=== PATIENT | male | born 1945 | race Caucasian/White ===

== ENCOUNTER → 2017-10-28 14:15 | Outpatient (CLI) | payer MEDICARE, BC, SELFPAY ==
--- NOTE | 2017-10-28 14:39 | XR_ITS ---
XR knee LT 3V HISTORY: ITS.REASON: LT KNEE PAIN/SWELLING ORDERING PHYSICIAN: Willian Carpenter PATIENT AGE: 72 years COMPARISON: None FINDINGS: There are mild osteoarthritic changes involving all 3 compartments slightly greater at the medial compartment with osteophyte formation and decrease in the joint space. No fracture or dislocation. No lytic or blastic change. There is increased density in the suprapatellar region consistent with knee joint effusion. Accessory center of ossification is present at the tibial tuberosity. IMPRESSION: Mild osteoarthritis with knee joint effusion
== END ==
PROVIDERS: PCP Internal Medicine; Visit Provider Internal Medicine
DX: M25.562 Pain in left knee (principal); M25.462 Effusion, left knee
CPT/HCPCS: 73562

== ENCOUNTER → 2018-06-27 09:22 | Outpatient (CLI) | payer MEDICARE, BC, SELFPAY ==
--- NOTE | 2018-06-27 09:30 | CT_ITS ---
CT abdomen pelvis wo con INDICATION: Hematuria. Pain. HISTORY of STONEs) previous ultrasound showed a right renal calculus. ORDERING PHYSICIAN: Remy Boucher PATIENT AGE: 73 years COMPARISON: None available at this facility . TECHNIQUE: No oral nor IV contrast utilized Axial images obtained with sagittal and coronal reformats. All CT scans at the facility use one or more dose reduction, viz: automated exposure control, ma/kV adjustment per patient size (including targeted exams where dose is matched to indication, i.e. head), or iterative reconstruction technique. FINDINGS: Lung bases. Emphysematous changes. There soft tissue lung nodule medial left lung base/posterior sulcus. This measures 17 mm diameter X 23 mm height at the medial aspect of the posterior sulcus. This soft tissue nodules nonspecific & will require further evaluation/follow-up or comparison to old studies. Along anterior margin of the soft tissue nodule is benign 6 mm calcified granuloma.. . Heart. Fairly extensive Coronary artery calcification, noted.. Heart upper normal size no pericardial effusion Abdomen/Pelvis.... Lack of oral and IV contrast decreases sensitivity. Liver. No focal lesions evident on this noncontrast study.. Would incidental note that the hepatic flexure the colon extends anterior to liver. Nonspecific but can be associated with abdominal symptoms at times. Spleen appears normal in size. Unremarkable. Pancreas Noncontrast images as pancreas appears satisfactory. No pancreatic duct dilatation. No pancreatic mass evident. Adrenals unremarkable. Gallbladder. No calcified gallstones. Cannot exclude and suspect minimal sludge no biliary ductal dilatation. Aorta. Diffuse Mild aneurysmal dilatation infrarenal lower abdominal aorta. Aorta measures up to 3.1 cm x 3 cm just above the bifurcation. Mild dilatation of left common iliac artery up to 1.6 cm and right common iliac artery 1.4 cm. TRACT. Kidneys appear normal in size bilaterally.. Trace Minor stranding about the left kidney more so than right, likely chronic in nature. The ureters appear normal caliber with no obstruction.. I believe but there are numerous parapelvic cyst, (rather than hydronephrosis) at kidneys bilaterally. Numerous parapelvic cyst seen at left kidney more so than right, Most likely accounting for the appearance central portion of kidneys.. Left kidney.. One of the more prominent parapelvic cyst seen inferior to the left renal pelvis left renal pelvis measuring 2.1 cm x 1.5 CM.. Numerous others are similar to slightly smaller measuring less than 2 cm elsewhere throughout central left kidney. At Right Kidney likely a parapelvic cyst superiorly to the right renal pelvis measuring up to 18 mm size coronal image 43. No Renal calculi either kidney.. I doubt hydronephrosis here & and favor peripelvic cyst. PELVIS basin Urinary bladder wall is thickened.likely reflecting hypertrophy .. Two large ovoid bladder calculi,, both Smooth margins The largest more anteriorly measures up to 4 cm transverse 3 cm height 2.5 cm AP. . The more posterior bladder stone measuring 3.3 cm transverse x 15 mm AP x 2.4 cm height Prostate is enlarged. It measures 6.1 cm transverse 5.8 cm AP over 7.6 cm height. It indents and elevates the base the bladder. . Seminal vesicles appear normal size. No significant pelvic adenopathy. Upper normal nodes along the left pelvic sidewall. No mesenteric or retroperitoneal adenopathy. Also note patient is developing bilateral fat-containing inguinal hernias with the right larger than left. This larger right inguinal hernia contains bladder air draping into this area as is nicely seen on sagittal image 48, axial 110 coronal image 33. Additional fat is seen along the inguinal canals bilaterally r
== END ==
PROVIDERS: PCP Internal Medicine; Visit Provider Urology
DX: N20.0 Calculus of kidney (principal)
CPT/HCPCS: 74176

== ENCOUNTER → 2021-02-22 13:09 | Outpatient (CLI) | payer MEDICARE, BC, SELFPAY | PROVIDERS: PCP Internal Medicine; Visit Provider Nurse Practitioner | DX: Z20.822 Contact with and (suspected) exposure to COVID-19 (principal) | CPT/HCPCS: C9803; U0003; U0005 ==

== ENCOUNTER → 2022-08-13 14:21 | Outpatient (CLI) | payer MEDICARE, BC, SELFPAY ==
--- NOTE | 2022-08-13 14:31 | ECG_ITS ---
APPROVED REPORT Exam: Resting ECG HR:93 bpm ECG Measurements Heart Rate 93 AXES NH 140 P 56 QRSd 110 QRS 24 QT 371 T -29 QTc 421 Conclusion SINUS RHYTHM VOLTAGE CRITERIA FOR LVH [MEETS CRITERIA IN ONE OF: R(aVL), S(V1), R(V5), R(V5/V6)+S(V1)] INFERIOR/LATERAL MYOCARDIAL INFARCTION , OF INDETERMINATE AGE [40+ ms Q WAVE AND/OR ST/T ABNORMALITY IN II/aVF] MARKED ST DEPRESSION, CONSIDER SUBENDOCARDIAL INJURY [0.2+ mV ST DEPRESSION] ACUTE [facility] Electronically signed by : Willian Carpenter MD 08/13/2022 17:20:19
== END ==
PROVIDERS: PCP Internal Medicine; Visit Provider Internal Medicine
DX: R06.09 Other forms of dyspnea (principal); R55 Syncope and collapse
CPT/HCPCS: 93005

== ENCOUNTER 2022-08-13 14:50 | Inpatient (IN) | payer MEDICARE, BC, SELFPAY ==
[2022-08-13] VITALS (14 sets, daily range): BP systolic 124–150; BP diastolic 86–122; PULSE 81–129; RESP 18–26; TEMP 36.6–37; O2SAT 94–100; BMI 30.6
--- NOTE | 2022-08-13 | CA_ITS ---
APPROVED REPORT EXAM: Comprehensive 2D, Doppler, and color-flow Echocardiogram Poultry Helper: Mita Ricketts, RCS, RVS Ht: 6 ft 0 in Wt: 225lbs BSA: 2.24 BP: 129/73 mmHg Indications: STEMI, Abn EKG, Pain between shoulder blades, Elevated troponin of 22. 2D Dimensions Aortic Root 3.36 cm M: 3.1 - 3.7 LA Volume 59.10 mL Left Atrium 2.77 cm M: 3.0 - 4.0 LA Volume Index 26.566636 mL/m2 (M/F) 16-34 LVOT 2.00 cm (M/F) 1.5-2.5 M-Mode Dimensions RVDd 2.84 cm (0.9-2.6) LA Diam 3.55 cm (1.9-4.0) LVDd 5.68 cm (3.5-5.7) Ao Diam 3.29 cm (2.0-3.7) LVDs 5.13 cm (3.5-5.7) IVSd 1.19 cm (0.6-1.1) PWd 1.14 cm (0.6-1.1) EF (Teich) 21.00% FS 9.70% EDV (Teich) 158.80 mL TAPSE 0.89 (<1.7) ESV (Teich) 125.50 mL LV Diastology E Decel Time 140.00 (160-240 msec) E/A Ratio 0.74 MED E' 2.40 (< 7 cm/sec) MED A' 9.00 cm/s E'/MED E' Ratio 21.21 (>14) LAT E' 3.40 (<10 cm/sec) LAT A' 7.30 cm/s E/LAT E' Ratio 14.97 (>14) Aortic Valve LVOT Max 71.00 (70-110 cm/s) LVOT VTI 10.57 cm AoV Peak Tay. 93.00 (50-130 cm/s) AO Peak GR. 3.40 mmHg AO Mean GR. 2.10 (<5 mmHg) AO VTI 14.36 (18-25 cm) ÓSCAR (VTI) 2.31 (2.5-4.5 cm2) Mitral Valve MV A Velocity 69.00 (40-130 cm/s) E/A Ratio 0.74 MV Decel. Time 140.00 (160-240 ms) MV PHT 63.00 ms Pulmonary Valve PV Peak Velocity 45.00 (50-150 cm/s) TN End VMAX 219.00 cm/s Tricuspid Valve TR P. Velocity 247.00 cm/s RAP Estimate 10.00 mmHg RVSP 34.40 mmHg Left Ventricle Technically difficult study because of the patient factors and poor acoustic windows. Left atrium is mildly enlarged, left ventricle mildly dilated, there is severe reduced left ventricular systolic function, estimated ejection fraction 20%, there is marked hypokinesis involving mid to distal septum, anterior, anterior apical, anterolateral and inferior wall. Doppler evidence of low cardiac output state seen, grade 1 diastolic dysfunction is also seen with tissue Doppler evidence of late left atrial pressure. Right Ventricle Right atrium and right ventricular mildly enlarged with normal contractility. Aortic Valve Aortic valve is thickened and calcified without aortic stenosis or aortic insufficiency. Mitral Valve Mitral valve leaflets are minimally thickened, there is mild mitral regurgitation. Tricuspid Valve Tricuspid valve grossly normal, there is mild tricuspid regurgitation tricuspid regurgitation jet velocity is inadequate for calculation of the right ventricular systolic pressure. Pulmonic Valve Pulmonic valve is poorly visualized. Great Vessels Aortic root is normal size. Inferior vena cava is poorly visualized. Pericardium No significant pericardial effusion noted. Conclusion 1. Technically difficult study because of the patient factors and poor acoustic windows. Biatrial enlargement, dilated left ventricle, severe reduced left ventricular systolic function, estimated ejection fraction 20% with multiple segmental wall motion abnormalities as described above, Doppler evidence of low cardiac output state, grade 1 diastolic dysfunction seen with tissue Doppler evidence of reduced left atrial pressure. 2. Mildly enlarged right ventricle with normal contractility. 3. Mild mitral and tricuspid regurgitation. 4. No significant pericardial effusion. 5. Inferior vena cava is poorly visualized. Electronically signed by : Rafi Siddiqi MD 08/14/2022 07:01:41
--- NOTE | 2022-08-13 14:44 | ECG_ITS ---
APPROVED REPORT Exam: Resting ECG HR:102 bpm ECG Measurements Heart Rate 102 AXES NC 154 P 43 QRSd 106 QRS -5 QT 353 T -16 QTc 411 Conclusion SINUS TACHYCARDIA LEFT VENTRICULAR HYPERTROPHY AND ST-T CHANGE [VOLTAGE CRITERIA PLUS ST/T ABNORMALITY] INFERIOR MYOCARDIAL INFARCTION , OF INDETERMINATE AGE [40+ ms Q WAVE AND/OR ST/T ABNORMALITY IN II/aVF] PROBABLE ANTEROLATERAL MYOCARDIAL INFARCTION , OF INDETERMINATE AGE [35 ms Q WAVE IN I/aVL/V3-V6] ABNORMAL ECG INTERPRETATION BASED ON A DEFAULT AGE OF 40 YEARS UNCONFIRMED REPORT Electronically signed by : Mateo Epstein MD 08/14/2022 03:00:08
--- NOTE | 2022-08-13 14:56 | XR_ITS ---
FINAL REPORT CLINICAL HISTORY: soa FINDINGS: A single PA view of the chest was obtained. There is no prior exam for comparison. The cardiac and mediastinal silhouettes are within normal limits. Right paratracheal opacity likely represents vascular structures. Lung volumes are low. The lungs are otherwise clear. There is no effusion or pneumothorax. No acute osseous abnormality is identified. IMPRESSION: Low lung volumes. No acute infiltrate. Recommend upright PA and lateral chest x-ray. Reviewed, Interpreted and Dictated by Roopa Pitts MD Transcribed by Mario Ramos Authenticated and [facility]
[2022-08-13 15:07] LABS: Basophils # 0.1 K/mm3 (0-0.2); Basophils % 0.3 % (0.1-2.0); Eosinophils # 0.2 K/mm3 (0.0-0.4); Eosinophils % 1.3 % (0.1-12.0); Hemoglobin 13.8 g/dL (14.1-18.0); Lymphocytes # 1.5 K/mm3 (0.7-4.5); Lymphocytes % 8.9 % (10-50); Mean Corpuscular HGB Conc 32.2 g/dL (31.8-35.4); Mean Corpuscular Hemoglobin 29.8 pg (27.0-31.2); Mean Corpuscular Volume 92.6 fl (80-94); Mean Platelet Volume 9.1 fl (7.4-10.4); Monocytes % 5.9 % (1.7-9.3); Neutrophils # 14.4 K/mm3 (1.8-7.8); Neutrophils % 83.7 % (37.0-80.0); Platelet Count 400 K/mm3 (142-424); Red Blood Count 4.64 M/mm3 (4.60-6.20); Red Cell Distribution Width 14.7 % (11.5-17.5); White Blood Count 17.3 K/mm3 (4.8-10.8)
--- NOTE | 2022-08-13 15:16 | HMH.EDGENADL ---
Discharge Plan Disposition Patient Disposition: Admitted As Inpatient Referrals Follow up/Referrals: Provider,Referral, [Referring] - See instructions Clinical Impressions Clinical Impression: ACS (acute coronary syndrome) Discharge ED Provider: Simon Vo General Adult HPI General Chief complaint: Chest Pain Stated complaint: soa Time Seen by Provider: 08/13/22 14:50 Mode of Arrival: Wheelchair Source of Information: Patient and Spouse Limitations: No Limitations Description of Symptoms (Recalled from ER Triage Doc. by RN): Pt from home c/o chest pain onset approx 3 days prior no only mid-back pain; denies PMHx of similiar History of Present Illness HPI narrative: 77-year-old male presents with shortness of air for few days. He was going to have an outpatient dental procedure today and was evaluated by cardiology however when Dr. Jacob evaluated him he noticed that there were EKG changes and sent him to the emergency room. He described it as a subacute STEMI however thinks that the EKG has q'ed out to the point where emergent heart catheterization is not indicated. On my evaluation when he initially arrives in the emergency room he has no chest pain shortness of air and is asymptomatic at this time. He describes upper back pain intermittently between his shoulder blades over the last week however has chronic back pain and was attributing it to this. He otherwise has no other symptoms including fever or hemoptysis abdominal pain nausea vomiting diaphoresis. Related Data Allergies Allergy/AdvReac Type Severity Reaction Status Date / Time nystatin [From Mycostatin] AdvReac Verified 08/13/22 15:10 rofecoxib [From Vioxx] AdvReac Verified 08/13/22 15:08 [facility] Disclaimer: The information contained in this section may have been updated after the patient was seen, as this information can be updated by other users. Social History Smoking Status: Never smoker alcohol intake: former current occupational status: other Travel in the last 8 weeks: Inside the [place] ROS Obtained: Yes All systems reviewed & no additional complaints except as documented Constitutional Constitutional: Denies fatigue Eyes Eyes: Denies dry eyes ENT Ears, Nose, Mouth, and Throat: Denies dizziness Cardiovascular Cardiovascular: Denies diaphoresis and Denies dyspnea Respiratory Respiratory: Denies dyspnea and Denies wheezing Gastrointestinal Gastrointestingal: Denies constipation or heartburn Genitourinary Male Genitourinary: Denies flank pain Musculoskeletal Musculoskeletal: Denies joint stiffness Integumentary/Breasts Skin/Breast: Denies redness Neurologic Neurologic: Denies dizziness Endocrine Endocrine: Denies fatigue Hematologic/Lymphatic Henatologic/Lymphatic: Denies easy bruising Allergic/Immunologic Allergic/Immunologic: Denies wheezing Physical Exam General General appearance: alert and in no apparent distress Eye Eye exam: Present PERRL and EOMI ENT ENT exam: Present normal exam and normal oropharynx Neck Neck exam: Present normal inspection Chest Chest inspection: Present symmetric chest wall rise Respiratory Respiratory exam: Present normal lung sounds bilaterally; Absent respiratory distress Cardiovascular Cardiovascular exam: Present regular rate and normal rhythm Abdominal Exam Abdominal exam: Present soft; Absent distention, tenderness, guarding, rebound, Frances's sign or tenderness at McBurney's Point Rectal Exam Rectal exam: Present deferred Back Exam Back exam: Present normal inspection Neurological Exam Neurological exam: Present alert and oriented X3 Psychiatric Psychiatric exam: Present normal affect and normal mood Skin Skin exam: Present warm, dry and intact Lymphatic Lymphatic Findings: no adenopathy Medical Decision Making Medical Records Medical records reviewed: Yes I reviewed the patient's medical records. Sarthak Inquiry Pt receiving controlled substance: No [place]
[2022-08-13 15:19] LABS: MANUAL DIFFERENTIAL MANUAL DIFFERENTIAL (MANUAL DIFF)
[2022-08-13 15:38] LABS: NT Pro Brain Natriuretic Pep. 19000 pg/mL (0-450)
[2022-08-13 15:47] LABS: Chloride 106 mmol/L (98-107); Potassium 4.4 mmoL/L (3.5-5.1); Sodium 140 mmol/L (136-145)
--- NOTE | 2022-08-13 15:49 | PC.NURSE ---
LUCRECIA SCOTT spoke with dr. davidson at this time
[2022-08-13 15:50] LABS: Alanine Aminotransferase 169 U/L (12-78); Albumin Level 4.5 g/dl (3.5-5.0); Albumin/Globulin Ratio 1.3 (1.1-1.8); Alkaline Phosphatase 121 U/L (38-126); Anion Gap 13.4 mEq/L (5-15); Aspartate Amino Transferase 161 U/L (17-59); Blood Urea Nitrogen 50 mg/dl (9-20); Calcium 8.9 mg/dl (8.4-10.2); Carbon Dioxide 25 mmol/L (22.0-30.0); Creatinine Clearance Estimated 27 mL/min (50-200); Estimated Glomerular Filt Rate 19 ml/min (>60); GFR (African American) 23 ML/MIN (>60); Globulin 3.4 g/dL (1.3-3.2); Glucose 173 mg/dl (74-100); Total Protein,Serum 7.9 g/dl (6.3-8.2)
--- NOTE | 2022-08-13 15:50 | PC.NURSE ---
waiting cable television technician back from dr. lorenzana
--- NOTE | 2022-08-13 15:54 | HMH.PHAHEP ---
[facility] Pharmacy Heparin Dosing Demographic Data Admission date:: 08/13/22 Date: 08/13/22 Time: 15:54 Allergies Allergy/AdvReac Type Severity Reaction Status Date / Time nystatin [From Mycostatin] AdvReac Verified 08/13/22 15:10 rofecoxib [From Vioxx] AdvReac Verified 08/13/22 15:08 Height: 1.83 m Weight: 102.512 kg Indication Medication therapy:: Heparin Current Indications:: ACS (LOW DOSE PROTOCOL) Current Active Problems (Updated 08/14/22 @ 10:05 by Chaya Cardoza APRN) Elevated liver enzymes (Acute) RAQUEL (acute kidney injury) (Acute) Atrial fibrillation with RVR (Acute) Acute systolic CHF (congestive heart failure) (Acute) NSTEMI (non-ST elevated myocardial infarction) (Acute) ACS (acute coronary syndrome) (Acute) CVA?: No Bleeding problem?: No Kidney disease?: No MS?: Yes Desired PTT range:: 50-75 seconds Labs Anticoagulation Lab Results:: 08/13/22 15:00 Hgb 13.8 L Hct 43.0 Plt Count 400 Monitoring Dose Monitor 1: Date: 08/13/22 Time: 15:46 PTT Result:: 25.5 seconds Infusion Rate:: START HEPARIN DRIP AT 1000 UNITS/HOUR = 20 ML/HOUR AND BOLUS HEPARIN 4000 UNITS IV ONCE. Dose Monitor 2: Date: 08/13/22 Time: 20:00 PTT Result:: 42.8 seconds Infusion Rate:: INCREASE HEPARIN DRIP RATE TO 1200 UNITS/HOUR = 24 ML/HOUR AND BOLUS HEPARIN 3000 UNITS IV ONCE. Dose Monitor 3: Date: 08/14/22 Time: 03:00 PTT Result:: 51.2 SECONDS Infusion Rate:: CONTINUE CURRENT DRIP RATE OF 1200 UNITS/HOUR = 24 ML/HOUR. Dose Monitor 4: Date: 08/14/22 Time: 09:00 PTT Result:: 43.6 SECONDS Infusion Rate:: INCREASE HEPARIN DRIP RATE TO 1400 UNITS/HOUR = 28 ML/HOUR AND BOLUS 3000 UNITS HEPARIN IV ONCE. Dose Monitor 5: Date: 08/14/22 Time: 15:00 PTT Result:: 57.8 SECONDS Infusion Rate:: CONTINUE CURRENT HEPARIN DRIP RATE OF 1400 UNITS/HOUR = 28 ML/HOUR Dose Monitor 6: Date: 08/14/22 Time: 21:00 PTT Result:: 52.8 SECONDS Infusion Rate:: CONTINUE CURRENT HEPARIN DRIP RATE OF 1400 UNITS/HOURS = 28 ML/HOUR Dose Monitor 7: Date: 08/15/22 Time: 06:00 PTT Result:: 54.4 SECONDS Infusion Rate:: CONTINUE CURRENT HEPARIN DRIP RATE OF 1400 UNITS/HOUR = 28 ML/HOUR Core Measures Is INR > or = 2 at discharge?: No Most Recent Labs:: Laboratory Results - last 24 hr 08/13/22 15:00: WBC 17.3 H, RBC 4.64, Hgb 13.8 L, Hct 43.0, MCV 92.6, MCH 29.8, MCHC 32.2, RDW 14.7, Plt Count 400, MPV 9.1, Neut % (Auto) 83.7 H, Lymph % (Auto) 8.9 L, [place] % (Auto) 5.9, Eos % (Auto) 1.3, Baso % (Auto) 0.3, Neut # (Auto) 14.4 H, Lymph # (Auto) 1.5, [place] # (Auto) 1.0, Eos # (Auto) 0.2, Baso # (Auto) 0.1 08/13/22 15:00: D-Dimer 1.40 H 08/13/22 15:00: Troponin I 22.70 H, NT-Pro-B Natriuret Pep 44934 H 08/13/22 15:00: Sodium 140, Potassium 4.4, Chloride 106, Carbon Dioxide 25, Anion Gap 13.4, BUN 50 H, Creatinine 3.20 H, Estimated Creat Clear 27, Estimated GFR 19 L*, Est GFR ( Amer) 23 L, Glucose 173 H, Calcium 8.9, Total Bilirubin 1.0, AST 161 H, ALT 169 H, Alkaline Phosphatase 121, Total Protein 7.9, Albumin 4.5, Globulin 3.4 H, Albumin/Globulin Ratio 1.3 If INR was < than 2.0 why was therapy stopped?: CHANGED TO XARELTO Were Heparin and Warfarin started on the same day?: No If not, why?: CHANGED TO XARELTO
--- NOTE | 2022-08-13 15:56 | PC.NURSE ---
per cv lab staff to ER states preliminary EF is 20%
--- NOTE | 2022-08-13 16:12 | PC.NURSE ---
called care management for admission awaiting bed assignment
[2022-08-13 16:16] LABS: Coronavirus 19, PCR Not Detected (NotDetected); Influenza A, PCR Not Detected (NotDetected); Influenza B, PCR Not Detected (NotDetected)
[2022-08-13 16:26] LABS: Lymphocytes % 4 % (10-50); Monocytes % 4 % (2-9); Neutrophils % 92 % (42-76); Platelet Estimate Normal; RBC Morphology Normal; Total Cells Counted 100
--- NOTE | 2022-08-13 16:52 | PC.NURSE ---
data entry technician Tasia called to report PTT heparin lab at 25.5, result communicated to physician Tavo
[2022-08-13 16:53] LABS: PTT Heparin (inpatient only) 25.5 Seconds (23.6-34.0)
--- NOTE | 2022-08-13 16:57 | PC.NURSE ---
Voicemail left w on-call pharmacist for dosing reccs after PTT level established prior to heparin administration
--- NOTE | 2022-08-13 17:00 | PC.NURSE ---
per limehouse worker pt will be boarding in ER at this time. waiting on discharges updated pt and family
--- NOTE | 2022-08-13 17:15 | PC.NURSE ---
supper tray ordered for pt
--- NOTE | 2022-08-13 17:24 | PC.NURSE ---
Spoke conrado Madera, the long call pharmacist, after no return from inpt service, and clarified heparin dosing protocol with expected PTT level checked as ordered at 20:00 today.
--- NOTE | 2022-08-13 17:50 | PC.NURSE ---
pt was eating no complaints at this time, family at bedside
--- NOTE | 2022-08-13 17:59 | PC.NURSE ---
dr. lorenzana at BS
--- NOTE | 2022-08-13 18:04 | PC.NURSE ---
three hour troponin drawn and sent to lab
--- NOTE | 2022-08-13 18:26 | EXP.HP ---
History of Present Illness *Admission Date: 08/13/22 *Reason for visit:: Weakness, dyspnea with exertion, back pain *History of present illness: Mr. Rose is a pleasant 77-year-old male who presented to the ER with shortness of breath worse over the past 48 to 72 hours. His is with him and gives additional history. Patient states that Saturday he felt weak and had a fall into the wall with back pain. Fell because he felt fatigued and more dyspneic with exertion. Denies any jermaine chest pain, diaphoresis, jermaine syncope. No previous history of cardiac problems per his report. He was being evaluated as an outpatient by his PCP prior to having a dental procedure. EKG obtained showing concern for Q waves and subacute STEMI. This led to his immediate presentation to the ER at the recommendation of cardiology. On evaluation in the ER, he denied any chest pain but does complain of some dyspnea. Medicine consulted for admission. Patient mildly dyspneic on my interview. Respiratory rate 22-24. Blood pressures acceptable with systolics 130s to 140s. Denies jermaine chest pain. Does have significant edema in his lower extremities. at bedside helps supplement history and review of systems. Patient is alert and oriented x3. [facility] Disclaimer: The information contained in this section may have been updated after the patient was seen, as this information can be updated by other users. Social History Smoking Status: Never smoker alcohol intake: former current occupational status: other Travel in the last 8 weeks: Inside the [place] Review of Systems Review of Systems Review of systems (narrative): 14 point review of systems performed, pertinent positives and negatives as per HPI ENT Ears, Nose, Mouth, and Throat: Denies dizziness *Neurologic Neurologic: Denies dizziness Meds Home Medications and Allergies New Prescriptions to Start Prescriptions: Allergies Allergy/AdvReac Type Severity Reaction Status Date / Time nystatin [From Mycostatin] AdvReac Verified 08/13/22 15:10 rofecoxib [From Vioxx] AdvReac Verified 08/13/22 15:08 Exam Data for Last 24 hours Vital signs and Labs for Last 24 Hours: Temp Pulse Resp BP Pulse Ox 97.8 F 91 H 18 144/100 H 100 08/13/22 15:02 08/13/22 17:30 08/13/22 16:17 08/13/22 17:30 08/13/22 17:30 Laboratory Results - last 24 hr 08/13/22 15:00: WBC 17.3 H, RBC 4.64, Hgb 13.8 L, Hct 43.0, MCV 92.6, MCH 29.8, MCHC 32.2, RDW 14.7, Plt Count 400, MPV 9.1, Neut % (Auto) 83.7 H, Lymph % (Auto) 8.9 L, [place] % (Auto) 5.9, Eos % (Auto) 1.3, Baso % (Auto) 0.3, Neut # (Auto) 14.4 H, Lymph # (Auto) 1.5, [place] # (Auto) 1.0, Eos # (Auto) 0.2, Baso # (Auto) 0.1, Total Counted 100, Neutrophils % (Manual) 92 H, Lymphocytes % (Manual) 4 L, Monocytes % (Manual) 4, Platelet Estimate Normal, RBC Morphology Normal 08/13/22 15:00: D-Dimer 1.40 H 08/13/22 15:00: Troponin I 22.70 H, NT-Pro-B Natriuret Pep [id number] H 08/13/22 15:00: Sodium 140, Potassium 4.4, Chloride 106, Carbon Dioxide 25, Anion Gap 13.4, BUN 50 H, Creatinine 3.20 H, Estimated Creat Clear 27, Estimated GFR 19 L*, Est GFR ( Amer) 23 L, Glucose 173 H, Calcium 8.9, Total Bilirubin 1.0, AST 161 H, ALT 169 H, Alkaline Phosphatase 121, Total Protein 7.9, Albumin 4.5, Globulin 3.4 H, Albumin/Globulin Ratio 1.3 08/13/22 15:00: APTT 25.5 08/13/22 16:14: SARS-CoV-2 (PCR) Not detected, Influenza A Untype (PCR) Not detected, Influenza Type B (PCR) Not detected I & O for Last 24 hours: Intake & Output 08/10/22 08/11/22 08/12/22 08/13/22 23:59 23:59 23:59 23:59 Weight 102.512 kg Constitutional Constitutional: no acute distress *Routine HEENT Exam Head: Present normocephalic and atraumatic Eye: Present EOMI and PERRL ENT: Present mucous membranes moist Comments: poor dentition *Routine Neck Exam Neck: Present supple; Absent JVD Routine Chest/Breast/Axilla Exam
--- NOTE | 2022-08-13 18:42 | PC.NURSE ---
notified ER critical troponin.
--- NOTE | 2022-08-13 18:43 | PC.NURSE ---
Dr. Long notified of repeated troponin level, increased by 2.4 points
--- NOTE | 2022-08-13 19:18 | PC.NURSE ---
Dr. Long notified of change in patient condition with increased work of breathing, tachypnea and subjective dyspnea, recieved order and placed patinet on 2LNC oxygen admin, ordered, ECG, and paged cards cash applications associate
--- NOTE | 2022-08-13 19:21 | ECG_ITS ---
APPROVED REPORT Exam: Resting ECG HR:87 bpm ECG Measurements Heart Rate 87 AXES LA 157 P 82 QRSd 145 QRS 37 QT 383 T -15 QTc 427 Conclusion SINUS RHYTHM INTRAVENTRICULAR CONDUCTION DELAY [130+ ms QRS DURATION] PROBABLE LATERAL MYOCARDIAL INFARCTION , PROBABLY OLD [35 ms Q WAVE IN I/aVL/V5/V6] INFERIOR MYOCARDIAL INFARCTION , OF INDETERMINATE AGE [40+ ms Q WAVE AND/OR ST/T ABNORMALITY IN II/aVF] ABNORMAL ECG UNCONFIRMED REPORT Electronically signed by : Mateo Epstein MD 08/14/2022 02:58:38
--- NOTE | 2022-08-13 19:23 | PC.NURSE ---
Dr. Jacob w Cards returned page and informed of patient assessment and change in respiratory status, orders recieved for lisinopril 10mg PO once now, and furosemide 40mg IV once now, as well as holding any beta-blocking class medications.
--- NOTE | 2022-08-13 19:52 | PC.NURSE ---
Report called to inpt RN for room 218 accepting is Soo (sp?), no further questions after pt condition, eval, plan of care explained. Will come down to transport pt
--- NOTE | 2022-08-13 20:11 | PC.NURSE ---
PT ARRIVED TO FLOOR AT THIS TIME
[2022-08-13 21:10] LABS: PTT Heparin (inpatient only) 42.8 Seconds (23.6-34.0)
--- NOTE | 2022-08-13 21:43 | PC.NURSE ---
Heparin gtt titrated up to 1200u/hr per Pharmacy order.
--- NOTE | 2022-08-13 22:13 | ECG_ITS ---
APPROVED REPORT Exam: Resting ECG HR:123 bpm ECG Measurements Heart Rate 123 AXES QRSd 145 QRS 22 QT 311 T -42 QTc 384 Conclusion ATRIAL FIBRILLATION WITH RAPID VENTRICULAR RESPONSE INTRAVENTRICULAR CONDUCTION DELAY [130+ ms QRS DURATION] PROBABLE LATERAL MYOCARDIAL INFARCTION , PROBABLY OLD [35 ms Q WAVE IN I/aVL/V5/V6] INFERIOR MYOCARDIAL INFARCTION , OF INDETERMINATE AGE [40+ ms Q WAVE AND/OR ST/T ABNORMALITY IN II/aVF] ABNORMAL ECG UNCONFIRMED REPORT Electronically signed by : Mateo Epstein MD 08/14/2022 02:57:22
[2022-08-14] VITALS (23 sets, daily range): BP systolic 102–129; BP diastolic 56–91; PULSE 60–140; RESP 18–24; TEMP 36.5–36.9; O2SAT 96–100; BMI 30.6
--- NOTE | 2022-08-14 00:47 | PC.NURSE ---
Pt c/o SOA. Vitals stable BP-102/68 HR-107 to 122 still Afib on monitor. O2-98% Hospitalist notified at this time and stated she will come see the pt.
--- NOTE | 2022-08-14 00:56 | PC.NURSE ---
Pt c/o feeling very SOA, VS- bp 102/68, HR afib 80-100 afib, RR 24, O2 98% on 2 L nc. Hospitalist notified and is at bedside. NNO at this time.
[2022-08-14 03:27] LABS: PTT Heparin (inpatient only) 51.2 Seconds (23.6-34.0)
--- NOTE | 2022-08-14 05:13 | PC.NURSE ---
[place] with [facility] states to keep Heparin gtt at 1200u/hr. She will put in order for a new PTT to be drawn at 0900.
--- NOTE | 2022-08-14 05:30 | PC.NURSE ---
2206 Notified Raphael kapoor heart rhythm had changed and HR was 100-150s, irregular. Verbal order for an EKG and states she would come to bedside. 2214 EKG performed, pt is Afib RVR, Raphael Kapoor at bedside aware. 0 Raphael kapoor gives verbal order to start Amiodarone drip and bolus per protocol. R/V/and carried out.
--- NOTE | 2022-08-14 05:35 | PC.NURSE ---
Pt noted to convert back to NSR at 0214. J Devonte summers.
--- NOTE | 2022-08-14 05:37 | PC.NURSE ---
Pt has remained NSR since converting around 2am. Pt has not voiced any c/o of SOA since converting and denies having any kind of chest pain t/o shift. Heparin gtt is currently running at 1200u/hr, Amiodarone turned down at 0500, currently running at 0.5mg/min. is at bedside. Call light within reach.
[2022-08-14 06:27] LABS: Lymphocytes # 1.6 K/mm3 (0.7-4.5); Lymphocytes % 9.5 % (10-50); Platelet Count 337 K/mm3 (142-424); Red Blood Count 4.13 M/mm3 (4.60-6.20); White Blood Count 17.2 K/mm3 (4.8-10.8)
[2022-08-14 06:36] LABS: Basophils % 0.2 % (0.1-2.0); Eosinophils % 0.2 % (0.1-12.0); Hematocrit 38.3 % (42.0-52.0); Hemoglobin 12.1 g/dL (14.1-18.0); Mean Corpuscular HGB Conc 31.5 g/dL (31.8-35.4); Mean Corpuscular Hemoglobin 29.3 pg (27.0-31.2); Mean Corpuscular Volume 92.9 fl (80-94); Mean Platelet Volume 9.1 fl (7.4-10.4); Monocytes # 1.2 K/mm3 (0.1-1.0); Neutrophils # 14.3 K/mm3 (1.8-7.8); Red Cell Distribution Width 14.6 % (11.5-17.5)
[2022-08-14 06:38] LABS: MANUAL DIFFERENTIAL MANUAL DIFFERENTIAL (MANUAL DIFF)
[2022-08-14 06:44] LABS: Alanine Aminotransferase 129 U/L (12-78); Albumin Level 3.6 g/dl (3.5-5.0); Albumin/Globulin Ratio 1.2 (1.1-1.8); Alkaline Phosphatase 113 U/L (38-126); Anion Gap 11.1 mEq/L (5-15); Aspartate Amino Transferase 140 U/L (17-59); Bilirubin,Total 0.9 mg/dl (0.2-1.3); Blood Urea Nitrogen 58 mg/dl (9-20); Calcium 8.1 mg/dl (8.4-10.2); Carbon Dioxide 20 mmol/L (22.0-30.0); Chloride 106 mmol/L (98-107); Creatinine Clearance Estimated 29 mL/min (50-200); Estimated Glomerular Filt Rate 20 ml/min (>60); GFR (African American) 25 ML/MIN (>60); Globulin 2.9 g/dL (1.3-3.2); Glucose 159 mg/dl (74-100); Magnesium 2.2 mg/dl (1.6-2.3); Potassium 4.1 mmoL/L (3.5-5.1); Sodium 133 mmol/L (136-145); Total Protein,Serum 6.5 g/dl (6.3-8.2)
[2022-08-14 06:50] LABS: Chol/HDL Ratio 4.3 (1-3.5); Cholesterol 159 mg/dl (140-200); HDL Cholesterol 37 mg/dl (40-60); Triglycerides 132 mg/dl (30-150); VLDL Cholesterol 26 mg/dL (0-40)
[2022-08-14 07:00] LABS: Direct LDL Cholesterol 99.81 mg/dL (100-129)
--- NOTE | 2022-08-14 07:39 | HMH.PHAINT1 ---
Pharmacy Intervention Comments: MEDICATION RECONCILIATION COMPLETED ON PATIENT VIA PATIENT INTERVIEW. ONLY TAKES MECLIZINE DAILY NEEDED. -ANNETTE SNIDER, SVEND
[2022-08-14 07:51] LABS: Lymphocytes % 16 % (10-50); Monocytes % 3 % (2-9); Neutrophils % 81 % (42-76); Platelet Estimate Normal; RBC Morphology Normal; Total Cells Counted 100
--- NOTE | 2022-08-14 08:40 | PC.NURSE ---
Notified Dr Long face to face at 0840 that pt has triggered for severe sepsis risk at this time. no new orders.
--- NOTE | 2022-08-14 09:29 | EXP.CARD.CON ---
History of Present Illness History of Present Illness Consult date: 08/14/22 Requesting physician: Mazin Long Chief complaint: NSTEMI History of present illness: 77-year-old white male who denies significant past medical history presented to emergency department for evaluation of abnormal EKG concerning for Q waves and subacute stemi. Patient reports he felt poorly over the weekend and had experienced sudden onset of soa and generalized weakness. Reports on Saturday he fell into a wall due to generalized weakness and soa. Reports did not have LOC. Had a second episodes yesterday prompting him to go to his pcp for evaluation. PCP sent him to hospital to get an ekg. Initial EKG showed pathologic Q waves in inferior leads and non specific st changes concerning for recent ND. Patient was sent to ER for further evaluation and admission. Patient denies any chest pain but does report back pain between shoulder blades x 1 week which he attributed to chronic back pain. Chest xray was negative for acute illness or process. Labs as follow: WBC 17.3, hemoglobin 13.8, D-dimer 1.4, sodium 140, potassium 4.4, BUN 50, creatinine 3.20 trending down to 3.0, AST 161, ALT 169, troponin 22.7 trending up to 29.8, proBNP greater than 19,000. Cardiology was consulted and patient was started on heparin drip and admitted for further evaluation. After admission to hospital patient developed A-fib RVR with a rate of 120 when getting up to walk to the bathroom. Patient was started on IV amiodarone and converted to normal sinus rhythm. [facility] Disclaimer: The information contained in this section may have been updated after the patient was seen, as this information can be updated by other users. Medical History (Updated 08/14/22 @ 10:05 by Chaya Cardoza APRN) Melanoma of scalp Surgical History (Updated 08/13/22 @ 20:36 by Sadia Shen RN) History of bladder surgery Status post left partial knee replacement Family History (Updated 08/13/22 @ 20:37 by Sadia Shen RN) Other Cancer of pituitary gland Prostate cancer Throat cancer Social History (Updated 08/13/22 @ 20:38 by Sadia Shen RN) Smoking Status: Never smoker alcohol intake: former current occupational status: other Travel in the last 8 weeks: Inside the [place] Review of Systems Review of Systems Review of systems:: pertinent systems reviewed and negative unless documented below Constitutional Constitutional: Reports system reviewed and no additional complaints, except as documented and Reports fatigue ENT Ears, Nose, Mouth, and Throat: Denies dizziness *Cardiovascular Cardiovascular: Reports system reviewed and no additional complaints, except as documented and Reports dyspnea *Respiratory Respiratory: Reports system reviewed and no additional complaints, except as documented and Reports dyspnea *Gastrointestinal Gastrointestinal: Reports system reviewed and no additional complaints, except as documented *Musculoskeletal Musculoskeletal: Reports back pain *Neurologic Neurologic: Denies confusion and Denies dizziness Psychiatric Psychiatric: Reports system reviewed and no additional complaints, except as documented and Denies confusion Endocrine Endocrine: Reports fatigue Exam Data for Last 24 hours Vital signs and Labs for Last 24 Hours: Temp Pulse Resp BP Pulse Ox 98.2 F 76 20 118/72 99 08/14/22 07:47 08/14/22 08:00 08/14/22 08:00 08/14/22 08:00 08/14/22 08:00 Laboratory Results - last 24 hr 08/13/22 15:00: WBC 17.3 H, RBC 4.64, Hgb 13.8 L, Hct 43.0, MCV 92.6, MCH 29.8, MCHC 32.2, RDW 14.7, Plt Count 400, MPV 9.1, Neut % (Auto) 83.7 H, Lymph % (Auto) 8.9 L, [place] % (Auto) 5.9, Eos % (Auto) 1.3, Baso % (Auto) 0.3, Neut # (Auto) 14.4 H, Lymph # (Auto) 1.5, [place] # (Auto) 1.0, Eos # (Auto) 0.2, Baso # (Auto) 0.1, Total Counted 100, Neutrophils % (Manual) 92 H, Lymphocytes % (Manual) 4 L, Monocytes % (Manual) 4, Platelet Estima
[2022-08-14 09:53] LABS: PTT Heparin (inpatient only) 43.6 Seconds (23.6-34.0)
--- NOTE | 2022-08-14 10:35 | PC.NURSE ---
At start of shift Heparin drip infusing at 1200units/hr (24ml/hr) 1030 heparin drip increased to 1400units/hr (28ml/hr) and heparin bolus given per pharmacy orders.
--- NOTE | 2022-08-14 15:22 | DIET.NUTRFU ---
Patient is currently on cardiac diet, did not like his lunch he was requesting hamburger. Nursing okay to have. When interviewed patient indicated he is picky and does not follow cardiac at home. Eats hamburgers often and dislikes Mrs. Magallon. Reviewed and took dinner selection from patient. was reviewing tomorrows menu often visit. RD explained what foods were available on cardiac diet and ordering process.
[2022-08-14 15:31] LABS: PTT Heparin (inpatient only) 57.8 Seconds (23.6-34.0)
--- NOTE | 2022-08-14 17:29 | PC.NURSE ---
per pharmacy drip does not need to be titrated. results are within acceptable range.
--- NOTE | 2022-08-14 19:51 | EXP.ACUTE.PN ---
Subjective *Date: 08/14/22 *Time: 19:56 Interval history: Patient doing well this morning. Has diuresed well overnight, -1 L. Had an episode of A-fib overnight, responded to amiodarone. Elevated white cell count this morning, meets SIRS criteria but does not have a source of infection. Consider further work-up. Electrolytes stable. Denies chest pain, nausea, vomiting, confusion, fevers Medical Exam Vital signs and Labs for Last 24 Hours: Vital Signs Temp Pulse Pulse Pulse Resp BP BP 08/14/22 17:00 65 08/14/22 18:00 67 20 126/72 08/14/22 16:02 66 20 110/56 L 08/14/22 16:00 60 08/14/22 08:02 70 08/14/22 12:00 60 08/14/22 15:33 97.9 F 08/14/22 15:00 65 20 106/68 L 08/14/22 12:50 69 20 112/67 08/14/22 11:18 97.7 F 08/14/22 10:00 69 20 112/70 08/14/22 07:50 71 08/14/22 08:00 76 20 118/72 08/14/22 07:47 98.2 F 08/14/22 04:00 98.2 F 08/13/22 22:00 129 H 26 H 08/14/22 06:00 68 24 08/13/22 20:39 120 H 08/14/22 04:34 70 08/14/22 00:00 140 H 08/14/22 04:00 08/14/22 04:00 69 18 08/14/22 02:00 73 18 08/14/22 00:55 95 H 24 08/14/22 00:00 98.2 F 111 H 18 08/13/22 20:00 08/13/22 20:00 98.6 F 08/13/22 20:16 98 F 83 18 133/95 H BP Pulse Ox 08/14/22 17:00 97 08/14/22 18:00 99 08/14/22 16:02 99 08/14/22 16:00 08/14/22 08:02 08/14/22 12:00 08/14/22 15:33 08/14/22 15:00 99 08/14/22 12:50 100 08/14/22 11:18 08/14/22 10:00 98 08/14/22 07:50 99 08/14/22 08:00 99 08/14/22 07:47 08/14/22 04:00 08/13/22 22:00 124/86 99 08/14/22 06:00 127/72 99 08/13/22 20:39 08/14/22 04:34 08/14/22 00:00 08/14/22 04:00 98 08/14/22 04:00 115/76 99 08/14/22 02:00 129/91 H 99 08/14/22 00:55 102/68 L 98 08/14/22 00:00 102/69 L 96 08/13/22 20:00 99 08/13/22 20:00 08/13/22 20:16 Intake and Output 08/14/22 08/14/22 08/14/22 07:59 15:59 23:59 Intake Total 0 / 1660 360 / 1660 1300 / 1660 Output Total 200 / 700 500 / 700 Balance -200 / 960 -140 / 960 1300 / 960 Intake: Intake, Oral Amount 0 / 600 360 / 600 240 / 600 Intake, Total IV Amount 1060 / 1060 Amiodarone HCl 900 mg In 485 / 485 Dextrose 5 % in Water 500 ml @ 16.7 mls/hr IV .Q25H [facility] Rx#: [id number] Heparin Sodium,Porcine/D5w 500 575 / 575 ml @ 1,400 UNITS/HR 28 mls/hr IV .[id number] [facility] Rx#:[id number] Output: Output, Urine Amount 200 / 700 500 / 700 Other: Number of Unmeasured Voids 1 0 Weight 102.512 kg 102.5 kg Patient Weight 08/14/22 23:59 Weight 102.5 kg Laboratory Results - last 24 hr 08/13/22 20:25: Troponin I 29.80 H 08/13/22 20:25: APTT 42.8 H 08/14/22 03:05: APTT 51.2 H* 08/14/22 05:30: Triglycerides 132, Cholesterol 159, LDL Cholesterol Direct 99.81 L, VLDL Cholesterol 26, HDL Cholesterol 37 L, Cholesterol/HDL Ratio 4.3 H 08/14/22 05:30: WBC 17.2 H, RBC 4.13 L, Hgb 12.1 L D, Hct 38.3 L, MCV 92.9, MCH 29.3, MCHC 31.5 L, RDW 14.6, Plt Count 337, MPV 9.1, Neut % (Auto) 83.0 H, Lymph % (Auto) 9.5 L, [place] % (Auto) 7.0, Eos % (Auto) 0.2, Baso % (Auto) 0.2, Neut # (Auto) 14.3 H, Lymph # (Auto) 1.6, [place] # (Auto) 1.2 H, Eos # (Auto) 0.0, Baso # (Auto) 0.0, Total Counted 100, Neutrophils % (Manual) 81 H, Lymphocytes % (Manual) 16, Monocytes % (Manual) 3, Platelet Estimate Normal, RBC Morphology Normal 08/14/22 05:30: Sodium 133 L, Potassium 4.1, Chloride 106, Carbon Dioxide 20 L, Anion Gap 11.1, BUN 58 H, Creatinine 3.00 H, Estimated Creat Clear 29, Estimated GFR 20 L, Est GFR ( Amer) 25 L, Glucose 159 H, Calcium 8.1 L, Magnesium 2.2, Total Bilirubin 0.9, AST 140 H, ALT 129 H, Alkaline Phosphatase 113, Total Protein 6.5, Albumin 3.6 D, Globulin 2.9, Albumin/Globulin Ratio 1.2 08/14/22 09:13: APTT 43.6 H
[2022-08-14 21:01] LABS: Chloride 102 mmol/L (98-107); Potassium 4.1 mmoL/L (3.5-5.1); Sodium 136 mmol/L (136-145)
[2022-08-14 21:04] LABS: Blood Urea Nitrogen 68 mg/dl (9-20); Creatinine Clearance Estimated 24 mL/min (50-200); Estimated Glomerular Filt Rate 16 ml/min (>60); GFR (African American) 20 ML/MIN (>60)
[2022-08-14 21:05] LABS: Anion Gap 14.1 mEq/L (5-15); Calcium 8.1 mg/dl (8.4-10.2); Carbon Dioxide 24 mmol/L (22.0-30.0); Glucose 160 mg/dl (74-100)
[2022-08-14 21:57] LABS: PTT Heparin (inpatient only) 52.8 Seconds (23.6-34.0)
[2022-08-15] VITALS (14 sets, daily range): BP systolic 101–132; BP diastolic 55–88; PULSE 60–80; RESP 17–20; TEMP 36.5–36.7; O2SAT 95–98; BMI 30.6
--- NOTE | 2022-08-15 00:04 | PC.NURSE ---
He is A&Ox4. He denie pain or SOA. He continues on 2LPM n/c for comfort. His is at the bedside. He states his last BM was on Saturday. Turns himself independently in bed.
[2022-08-15 06:21] LABS: Eosinophils % 0.1 % (0.1-12.0); Hemoglobin 11.6 g/dL (14.1-18.0); Lymphocytes # 1.2 K/mm3 (0.7-4.5); Lymphocytes % 7.2 % (10-50); Mean Corpuscular HGB Conc 32.3 g/dL (31.8-35.4); Mean Corpuscular Hemoglobin 29.8 pg (27.0-31.2); Mean Corpuscular Volume 92.4 fl (80-94); Mean Platelet Volume 9.8 fl (7.4-10.4); Monocytes # 0.6 K/mm3 (0.1-1.0); Monocytes % 3.4 % (1.7-9.3); Neutrophils # 14.8 K/mm3 (1.8-7.8); Neutrophils % 89.2 % (37.0-80.0); Platelet Count 354 K/mm3 (142-424); Red Cell Distribution Width 14.7 % (11.5-17.5); White Blood Count 16.6 K/mm3 (4.8-10.8)
[2022-08-15 06:22] LABS: Alanine Aminotransferase 89 U/L (12-78); Albumin Level 3.3 g/dl (3.5-5.0); Albumin/Globulin Ratio 1.1 (1.1-1.8); Alkaline Phosphatase 103 U/L (38-126); Anion Gap 14.2 mEq/L (5-15); Aspartate Amino Transferase 63 U/L (17-59); Bilirubin,Total 0.6 mg/dl (0.2-1.3); Blood Urea Nitrogen 75 mg/dl (9-20); Calcium 7.6 mg/dl (8.4-10.2); Carbon Dioxide 20 mmol/L (22.0-30.0); Chloride 104 mmol/L (98-107); Creatinine Clearance Estimated 26 mL/min (50-200); Estimated Glomerular Filt Rate 18 ml/min (>60); GFR (African American) 21 ML/MIN (>60); Globulin 2.9 g/dL (1.3-3.2); Glucose 172 mg/dl (74-100); Magnesium 2.2 mg/dl (1.6-2.3); Potassium 4.2 mmoL/L (3.5-5.1); Sodium 134 mmol/L (136-145); Total Protein,Serum 6.2 g/dl (6.3-8.2)
[2022-08-15 06:23] LABS: PTT Heparin (inpatient only) 54.4 Seconds (23.6-34.0)
[2022-08-15 06:29] LABS: MANUAL DIFFERENTIAL MANUAL DIFFERENTIAL (MANUAL DIFF)
--- NOTE | 2022-08-15 06:45 | PC.NURSE ---
[facility] CALLED WITH PTT RESULTS AND STATED TO LEAVE HEPARIN GTT AT CURRENT RATE OF 1400 UNITS/HR
--- NOTE | 2022-08-15 07:52 | EXP.PN ---
Subjective *Date: 08/15/22 *Time: 12:01 Interval history: No acute events reported overnight. The patient was seen on am rounding, at bedside. The patient denies any complaints, denies chest pain, shortness of air, abdominal pain, nausea, vomiting, diarrhea or constipation. Reports slept well overnight. Exam Data for Last 24 hours Vital signs and Labs for Last 24 Hours: Temp Pulse Resp BP Pulse Ox 98.1 F 68 18 101/63 L 97 08/15/22 02:00 08/15/22 02:00 08/15/22 02:00 08/15/22 02:00 08/15/22 02:00 Laboratory Results - last 24 hr 08/14/22 09:13: APTT 43.6 H 08/14/22 15:00: APTT 57.8 H* 08/14/22 20:40: Sodium 136, Potassium 4.1, Chloride 102, Carbon Dioxide 24, Anion Gap 14.1, BUN 68 H, Creatinine 3.60 H, Estimated Creat Clear 24, Estimated GFR 16 L*, Est GFR ( Amer) 20 L, Glucose 160 H, Calcium 8.1 L 08/14/22 21:25: APTT 52.8 H* 08/15/22 06:00: APTT 54.4 H* 08/15/22 06:00: WBC 16.6 H, RBC 3.90 L, Hgb 11.6 L, Hct 36.0 L, MCV 92.4, MCH 29.8, MCHC 32.3, RDW 14.7, Plt Count 354, MPV 9.8, Neut % (Auto) 89.2 H, Lymph % (Auto) 7.2 L, [place] % (Auto) 3.4, Eos % (Auto) 0.1, Baso % (Auto) 0.0 L, Neut # (Auto) 14.8 H, Lymph # (Auto) 1.2, [place] # (Auto) 0.6, Eos # (Auto) 0.0, Baso # (Auto) 0.0 08/15/22 06:00: Sodium 134 L, Potassium 4.2, Chloride 104, Carbon Dioxide 20 L, Anion Gap 14.2, BUN 75 H, Creatinine 3.40 H, Estimated Creat Clear 26, Estimated GFR 18 L*, Est GFR ( Amer) 21 L, Glucose 172 H, Calcium 7.6 L, Magnesium 2.2, Total Bilirubin 0.6, AST 63 H D, ALT 89 H D, Alkaline Phosphatase 103, Total Protein 6.2 L, Albumin 3.3 L, Globulin 2.9, Albumin/Globulin Ratio 1.1 I & O for Last 24 hours: Intake & Output 08/12/22 08/13/22 08/14/22 08/15/22 23:59 23:59 23:59 23:59 Intake Total 1660 / 1770 110 / 110 Output Total 1100 / 1100 700 / 700 Balance -1100 / -1100 960 / 1070 110 / 110 Weight 102.512 kg 102.5 kg 102.5 kg Constitutional Constitutional: no acute distress *Routine HEENT Exam Head: Present normocephalic Eye: Present PERRL ENT: Present mucous membranes moist *Routine Respiratory Exam Respiratory: Present CTA bilaterally and normal respiratory effort; Absent rhonchi, wheezes or crackles *Routine Cardiovascular Exam Cardiovascular: Present RRR, Normal S1 and Normal S2 *Routine Abdominal Exam Abdominal: Present soft and normoactive bowel sounds *Routine Extremities Exam Extremities: Present edema Comments: Trace to 1 plus BLE edema *Routine Skin Exam Skin: Present intact *Routine Neurological Exam Neurological: Present alert, oriented X3 and moving all extremities; Absent altered mental status Assessment and Plan *Assessment and plan (1) NSTEMI (non-ST elevated myocardial infarction): Status: Acute Category: Medical Code(s): I21.4 - Non-ST elevation (NSTEMI) myocardial infarction (2) Acute systolic CHF (congestive heart failure): Status: Acute Category: Medical Code(s): I50.21 - Acute systolic (congestive) heart failure (3) ACS (acute coronary syndrome): Status: Acute Category: Medical Code(s): I24.9 - Acute ischemic heart disease, unspecified (4) Elevated liver enzymes: Status: Acute Category: Medical Code(s): R74.8 - Abnormal levels of other serum enzymes (5) RAQUEL (acute kidney injury): Status: Acute Category: Medical Code(s): N17.9 - Acute kidney failure, unspecified (6) Atrial fibrillation with RVR: Status: Acute Category: Medical Code(s): I48.91 - Unspecified atrial fibrillation Plan 77-year-old male who presented with atypical chest/back pain. Found to have NSTEMI with concern for being at least 24 to 48 hours post AL based on history and EKG findings. Significant Q waves noted in EKG. Echo obtained showing preliminary EF 15 to 20%. NSTEMI ACS Acute systolic CHF A-fib with RVR -Went into A-fib with RVR 08/13. Initiated on amiodarone, complete dri
[2022-08-15 08:05] LABS: Lymphocytes % 10 % (10-50); Monocytes % 3 % (2-9); Neutrophils % 87 % (42-76); Platelet Estimate Normal; RBC Morphology Normal; Total Cells Counted 100
--- NOTE | 2022-08-15 09:09 | EXP.CARD.PN ---
Subjective Subjective Date: 08/15/22 Time: 08:00 Principal diagnosis: nstemi Interval history: No events noted over the evening. Patient reports is feeling better, slept well last night. Denies chest pain or shortness of breath. A.m. labs reviewed Exam Data for Last 24 hours Vital signs and Labs for Last 24 Hours: Temp Pulse Resp BP Pulse Ox 97.9 F 60 18 107/74 L 97 08/15/22 08:37 08/15/22 06:00 08/15/22 06:00 08/15/22 06:00 08/15/22 06:00 Laboratory Results - last 24 hr 08/14/22 09:13: APTT 43.6 H 08/14/22 15:00: APTT 57.8 H* 08/14/22 20:40: Sodium 136, Potassium 4.1, Chloride 102, Carbon Dioxide 24, Anion Gap 14.1, BUN 68 H, Creatinine 3.60 H, Estimated Creat Clear 24, Estimated GFR 16 L*, Est GFR ( Amer) 20 L, Glucose 160 H, Calcium 8.1 L 08/14/22 21:25: APTT 52.8 H* 08/15/22 06:00: APTT 54.4 H* 08/15/22 06:00: WBC 16.6 H, RBC 3.90 L, Hgb 11.6 L, Hct 36.0 L, MCV 92.4, MCH 29.8, MCHC 32.3, RDW 14.7, Plt Count 354, MPV 9.8, Neut % (Auto) 89.2 H, Lymph % (Auto) 7.2 L, [place] % (Auto) 3.4, Eos % (Auto) 0.1, Baso % (Auto) 0.0 L, Neut # (Auto) 14.8 H, Lymph # (Auto) 1.2, [place] # (Auto) 0.6, Eos # (Auto) 0.0, Baso # (Auto) 0.0, Total Counted 100, Neutrophils % (Manual) 87 H, Lymphocytes % (Manual) 10, Monocytes % (Manual) 3, Platelet Estimate Normal, RBC Morphology Normal 08/15/22 06:00: Sodium 134 L, Potassium 4.2, Chloride 104, Carbon Dioxide 20 L, Anion Gap 14.2, BUN 75 H, Creatinine 3.40 H, Estimated Creat Clear 26, Estimated GFR 18 L*, Est GFR ( Amer) 21 L, Glucose 172 H, Calcium 7.6 L, Magnesium 2.2, Total Bilirubin 0.6, AST 63 H D, ALT 89 H D, Alkaline Phosphatase 103, Total Protein 6.2 L, Albumin 3.3 L, Globulin 2.9, Albumin/Globulin Ratio 1.1 I & O for Last 24 hours: Intake & Output 08/12/22 08/13/22 08/14/22 08/15/22 23:59 23:59 23:59 23:59 Intake Total 1660 / 1770 710 / 710 Output Total 1100 / 1100 700 / 700 0 / 0 Balance -1100 / -1100 960 / 1070 710 / 710 Weight 226 lb 0.004 oz 225 lb 15.581 oz 225 lb 15.581 oz Constitutional Constitutional: no acute distress *Routine Respiratory Exam Respiratory: Present CTA bilaterally and symmetric chest movement *Routine Cardiovascular Exam Cardiovascular: Present RRR, Normal S1 and Normal S2 *Routine Abdominal Exam Abdominal: Present soft and normoactive bowel sounds; Absent tenderness *Routine Extremities Exam Extremities: Present full ROM and normal capillary refill; Absent edema *Routine Skin Exam Skin: Present intact, dry and warm Detailed Neck Exam: Thyroids Thyroid: Absent bruit Progress Note: A&P Assessment and plan (1) NSTEMI (non-ST elevated myocardial infarction): Status: Acute (2) Acute systolic CHF (congestive heart failure): Status: Acute (3) ACS (acute coronary syndrome): Status: Acute (4) Elevated liver enzymes: Status: Acute (5) RAQUEL (acute kidney injury): Status: Acute (6) Atrial fibrillation with RVR: Status: Acute Assessment and Plan Assessment and Plan for All Diagnoses:: ACS/Nstemi -Pathological Q waves noted in inferior leads with nonspecific st changes indicative of recent SD -Troponin 22-29. -Continue Hep drip. -Patient was initially given brilinta. Will switch to plavix due to worsening soa. Continue DAPT with aspirin and plavix. No bb due to acute CHF. Holding statin due to elevated liver enzymes -Plan for LHC after kidney function normalizes. 08/15/2022: LHC pending raquel improvement. DC heparin drip per Dr. Jacob. Acute HFrEF/Grade one DD- NYHA III -Echo 08/13/2022: Biatrial enlargement, dilated left ventricle, severely reduced LV function, estimated ejection fraction 20% with multiple segmental wall motion abnormalities noted.? Doppler evidence of low cardiac output state, grade 1 diastolic dysfunction. -Negative 1600 mL balance -Continue Lisinopril 10mg daily while closely monitoring kidney function. No BB at this time due to low cardiac state and acute chf. Continu
--- NOTE | 2022-08-15 18:14 | PC.NURSE ---
Pt resting in chair. Denies any discomfort at this time. VSS at this time. Pt has voided x3 this shift. Is currently resting in chair. NSR on telemetry. Call light in place. Family at bedside.
[2022-08-16] VITALS (8 sets, daily range): BP systolic 84–143; BP diastolic 46–69; PULSE 61–73; RESP 16–19; TEMP 36.4–36.6; O2SAT 94–99; BMI 30.4
--- NOTE | 2022-08-16 01:10 | PC.NURSE ---
Received report from Fernando Pepper RN at this time to assume to pt care
[2022-08-16 06:14] LABS: Basophils % 0.1 % (0.1-2.0); Eosinophils # 0.1 K/mm3 (0.0-0.4); Eosinophils % 0.3 % (0.1-12.0); Hematocrit 37.3 % (42.0-52.0); Hemoglobin 11.5 g/dL (14.1-18.0); Lymphocytes # 1.2 K/mm3 (0.7-4.5); Lymphocytes % 6.1 % (10-50); Mean Corpuscular HGB Conc 30.9 g/dL (31.8-35.4); Mean Corpuscular Hemoglobin 28.9 pg (27.0-31.2); Mean Corpuscular Volume 93.4 fl (80-94); Mean Platelet Volume 9.1 fl (7.4-10.4); Monocytes # 0.7 K/mm3 (0.1-1.0); Monocytes % 3.6 % (1.7-9.3); Neutrophils % 89.9 % (37.0-80.0); Platelet Count 363 K/mm3 (142-424); Red Blood Count 3.99 M/mm3 (4.60-6.20); Red Cell Distribution Width 14.8 % (11.5-17.5)
[2022-08-16 06:15] LABS: MANUAL DIFFERENTIAL MANUAL DIFFERENTIAL (MANUAL DIFF)
[2022-08-16 06:17] LABS: Chloride 105 mmol/L (98-107); Potassium 4.1 mmoL/L (3.5-5.1); Sodium 133 mmol/L (136-145)
[2022-08-16 06:19] LABS: Creatinine Clearance Estimated 22 mL/min (50-200); Estimated Glomerular Filt Rate 15 ml/min (>60); GFR (African American) 18 ML/MIN (>60)
[2022-08-16 06:20] LABS: Alanine Aminotransferase 78 U/L (12-78); Albumin Level 3.3 g/dl (3.5-5.0); Albumin/Globulin Ratio 1.2 (1.1-1.8); Alkaline Phosphatase 91 U/L (38-126); Anion Gap 14.1 mEq/L (5-15); Aspartate Amino Transferase 40 U/L (17-59); Bilirubin,Total 0.4 mg/dl (0.2-1.3); Calcium 7.7 mg/dl (8.4-10.2); Carbon Dioxide 18 mmol/L (22.0-30.0); Globulin 2.8 g/dL (1.3-3.2); Glucose 167 mg/dl (74-100); Total Protein,Serum 6.1 g/dl (6.3-8.2)
[2022-08-16 06:21] LABS: Magnesium 2.2 mg/dl (1.6-2.3)
[2022-08-16 06:26] LABS: Blood Urea Nitrogen 91 mg/dl (9-20)
[2022-08-16 06:38] LABS: PTT Heparin (inpatient only) 35.7 Seconds (23.6-34.0)
[2022-08-16 08:11] LABS: Lymphocytes % 9 % (10-50); Monocytes % 4 % (2-9); Neutrophils % 87 % (42-76); Total Cells Counted 100
[2022-08-16 08:12] LABS: Hypochromasia 1+; Platelet Estimate Normal
--- NOTE | 2022-08-16 09:35 | CA_ITS ---
FINAL REPORT TECHNIQUE: Grayscale, color Doppler and duplex Doppler ultrasound of the kidneys, aorta and renal arteries was performed. Multiple velocities were measured. CLINICAL HISTORY: RAQUEL,ELEVATED CREATINE-3.9,STEMI,HX KIDNEY STONES COMPARISON: None FINDINGS: Aorta velocity: 103 cm/sec Right kidney: 9.1 cm. No evidence of hydronephrosis or mass. Right intrarenal RI: 0.6-0.77 Right renal artery velocity: 118 cm/sec. Right RAR (Renal artery-Aortic Ratio): 1.14 Left Kidney: 10.8 cm. No evidence of hydronephrosis or mass. Left intrarenal RI: 0.61-0.75 Left renal artery velocity: 186 cm/sec. Left RAR (Renal Artery-Aortic Ratio): 1.8 IMPRESSION: No evidence of significant renal artery stenosis. CT angiogram or postcontrast MR angiogram would be more sensitive for evaluation of possible renal artery stenosis. Reviewed, Interpreted and Dictated by Roopa Pitts MD Transcribed by Luli Jaquez Authenticated and [facility]
--- NOTE | 2022-08-16 09:35 | US_ITS ---
FINAL REPORT CLINICAL HISTORY: Acute kidney injury COMPARISON: None FINDINGS: RENAL ULTRASOUND Ultrasound images of the kidneys were obtained. Limited images of the liver parenchyma demonstrates normal echogenicity. Spleen is normal and measures 10.2 cm. The right kidney measures 10.5 cm in length. There is no hydronephrosis, mass, or stone. There is cortical thinning and increased renal echogenicity. The left kidney measures 9.9 cm in length. There is mild left hydronephrosis. No mass. There is cortical thinning and increased renal echogenicity. IMPRESSION: Mild left hydronephrosis. Bilateral renal atrophy with findings suggesting medical renal disease. Reviewed, Interpreted and Dictated by Roopa Pitts MD Transcribed by Luli Jaquez Authenticated and [facility]
--- NOTE | 2022-08-16 09:44 | EXP.CARD.PN ---
Subjective Subjective Date: 08/09/22 Time: 08:30 Principal diagnosis: nstemi Interval history: No events noted over the evening. Patient reports feeling well denies chest pain or shortness of breath. A.m. labs reviewed Exam Data for Last 24 hours Vital signs and Labs for Last 24 Hours: Temp Pulse Resp BP Pulse Ox 97.8 F 73 18 114/69 94 L 08/16/22 07:47 08/16/22 07:47 08/16/22 07:47 08/16/22 07:47 08/16/22 07:47 Laboratory Results - last 24 hr 08/16/22 05:54: APTT 35.7 H 08/16/22 05:54: Sodium 133 L, Potassium 4.1, Chloride 105, Carbon Dioxide 18 L, Anion Gap 14.1, BUN 91 H, Creatinine 3.90 H, Estimated Creat Clear 22, Estimated GFR 15 L*, Est GFR ( Amer) 18 L*, Glucose 167 H, Calcium 7.7 L, Total Bilirubin 0.4, AST 40 D, ALT 78, Alkaline Phosphatase 91, Total Protein 6.1 L, Albumin 3.3 L, Globulin 2.8, Albumin/Globulin Ratio 1.2 08/16/22 05:54: WBC 19.0 H, RBC 3.99 L, Hgb 11.5 L, Hct 37.3 L, MCV 93.4, MCH 28.9, MCHC 30.9 L, RDW 14.8, Plt Count 363, MPV 9.1, Neut % (Auto) 89.9 H, Lymph % (Auto) 6.1 L, [place] % (Auto) 3.6, Eos % (Auto) 0.3, Baso % (Auto) 0.1, Neut # (Auto) 17.0 H, Lymph # (Auto) 1.2, [place] # (Auto) 0.7, Eos # (Auto) 0.1, Baso # (Auto) 0.0, Total Counted 100, Neutrophils % (Manual) 87 H, Lymphocytes % (Manual) 9 L, Monocytes % (Manual) 4, Platelet Estimate Normal, Hypochromasia 1+ 08/16/22 05:54: Magnesium 2.2 I & O for Last 24 hours: Intake & Output 08/13/22 08/14/22 08/15/22 08/16/22 23:59 23:59 23:59 23:59 Intake Total 1660 / 1770 1310 / 1310 360 / 360 Output Total 1100 / 1100 700 / 700 0 / 250 550 / 550 Balance -1100 / -1100 960 / 1070 1310 / 1060 -190 / -190 Weight 226 lb 0.004 oz 225 lb 15.581 oz 225 lb 15.581 oz 224 lb 7.983 oz Microbiology Reports for the Last 24 Hours: Microbiology 08/14/22 09:13 Blood Blood Culture - Preliminary NO GROWTH AFTER 48 HOURS 08/14/22 09:13 Blood Blood Culture - Preliminary NO GROWTH AFTER 48 HOURS Constitutional Constitutional: no acute distress *Routine Respiratory Exam Respiratory: Present CTA bilaterally and symmetric chest movement *Routine Cardiovascular Exam Cardiovascular: Present RRR, Normal S1 and Normal S2 *Routine Abdominal Exam Abdominal: Present soft and normoactive bowel sounds; Absent tenderness *Routine Extremities Exam Extremities: Present full ROM and normal capillary refill; Absent edema *Routine Skin Exam Skin: Present intact, dry and warm Detailed Neck Exam: Thyroids Thyroid: Absent bruit Progress Note: A&P Assessment and plan (1) NSTEMI (non-ST elevated myocardial infarction): Status: Acute (2) Acute systolic CHF (congestive heart failure): Status: Acute (3) ACS (acute coronary syndrome): Status: Acute (4) Elevated liver enzymes: Status: Acute (5) RAQUEL (acute kidney injury): Status: Acute (6) Atrial fibrillation with RVR: Status: Acute Assessment and Plan Assessment and Plan for All Diagnoses:: ACS/Nstemi -Pathological Q waves noted in inferior leads with nonspecific st changes indicative of recent [place] -Troponin 22-29. -Continue Hep drip. -Patient was initially given brilinta. Will switch to plavix due to worsening soa. Continue DAPT with aspirin and plavix. No bb due to acute CHF. Holding statin due to elevated liver enzymes -Plan for C after kidney function normalizes. 08/16/2022: Creatinine continues to rise. Patient remains stable. Denies chest pain or shortness of breath. Plan to hold off with left heart cath due to worsening RAQUEL. Will address outpatient on Saturday. Continue DAPT with Plavix and aspirin. We will add Coreg 3.125 twice daily and Crestor 40 mg daily. Acute HFrEF/Grade one DD- NYHA III -Echo 08/13/2022: Biatrial enlargement, dilated left ventricle, severely reduced LV function, estimated ejection fraction 20% with multiple segmental wall motion abnormalities noted.? Doppler evidence of l
--- NOTE | 2022-08-16 10:10 | EXP.ACUTE.PN ---
Subjective *Date: 08/16/22 *Time: 17:25 Interval history: Patient is doing well. No concerns or complaints this time. Medical Exam Vital signs and Labs for Last 24 Hours: Vital Signs Temp Pulse Pulse Resp BP Pulse Ox 08/16/22 07:47 97.8 F 73 18 114/69 94 L 08/16/22 04:00 97.7 F 71 17 105/58 L 95 08/16/22 00:00 97.7 F 67 18 105/63 L 94 L 08/15/22 20:00 97.8 F 66 20 106/72 L 95 08/15/22 16:00 60 08/15/22 15:33 97.7 F 63 17 114/68 97 08/15/22 14:00 65 20 122/69 97 08/15/22 12:00 60 08/15/22 12:00 68 19 108/72 L 96 08/15/22 11:43 97.7 F Intake and Output 08/15/22 08/16/22 08/16/22 23:59 07:59 15:59 Intake Total 360 / 1310 360 / 360 Output Total 0 / 250 550 / 550 Balance 360 / 1060 -550 / -190 360 / -190 Intake: Intake, Oral Amount 360 / 1200 360 / 360 Output: Output, Urine Amount 0 / 250 550 / 550 Other: Number of Voids 2 Number of Unmeasured Voids 1 1 Weight 101.831 kg Patient Weight 08/16/22 23:59 Weight 101.831 kg Laboratory Results - last 24 hr 08/16/22 05:54: APTT 35.7 H 08/16/22 05:54: Sodium 133 L, Potassium 4.1, Chloride 105, Carbon Dioxide 18 L, Anion Gap 14.1, BUN 91 H, Creatinine 3.90 H, Estimated Creat Clear 22, Estimated GFR 15 L*, Est GFR ( Amer) 18 L*, Glucose 167 H, Calcium 7.7 L, Total Bilirubin 0.4, AST 40 D, ALT 78, Alkaline Phosphatase 91, Total Protein 6.1 L, Albumin 3.3 L, Globulin 2.8, Albumin/Globulin Ratio 1.2 08/16/22 05:54: WBC 19.0 H, RBC 3.99 L, Hgb 11.5 L, Hct 37.3 L, MCV 93.4, MCH 28.9, MCHC 30.9 L, RDW 14.8, Plt Count 363, MPV 9.1, Neut % (Auto) 89.9 H, Lymph % (Auto) 6.1 L, [place] % (Auto) 3.6, Eos % (Auto) 0.3, Baso % (Auto) 0.1, Neut # (Auto) 17.0 H, Lymph # (Auto) 1.2, [place] # (Auto) 0.7, Eos # (Auto) 0.1, Baso # (Auto) 0.0, Total Counted 100, Neutrophils % (Manual) 87 H, Lymphocytes % (Manual) 9 L, Monocytes % (Manual) 4, Platelet Estimate Normal, Hypochromasia 1+ 08/16/22 05:54: Magnesium 2.2 I & O for Labs for Last 24 Hours: Intake & Output 08/13/22 08/14/22 08/15/22 08/16/22 23:59 23:59 23:59 23:59 Intake Total 1660 / 1770 1310 / 1310 360 / 360 Output Total 1100 / 1100 700 / 700 0 / 250 550 / 550 Balance -1100 / -1100 960 / 1070 1310 / 1060 -190 / -190 Weight 102.512 kg 102.5 kg 102.5 kg 101.831 kg Microbiology Reports for the Last 24 Hours: Microbiology 08/14/22 09:13 Blood Blood Culture - Preliminary NO GROWTH AFTER 48 HOURS 08/14/22 09:13 Blood Blood Culture - Preliminary NO GROWTH AFTER 48 HOURS Constitutional: Present mild distress, obese and chronically ill appearing Head: Present atraumatic and normocephalic ENT: Present normal exam Neck: Present normal inspection Respiratory: Present normal respiratory effort; Absent accessory muscle use, rhonchi, wheezes or crackles Cardiac: Present Reg Rate and Rhythm GI: Present soft and normal bowel sounds; Absent distention or tenderness Extremities: Present normal inspection, full ROM and edema (interval improvement) Skin: Present intact; Absent erythema Neuro: Present Grossly Intact, alert, awake, oriented x 3 and moves all extremities Assessment and Plan *Assessment and plan (1) NSTEMI (non-ST elevated myocardial infarction): Status: Acute Category: Medical Code(s): I21.4 - Non-ST elevation (NSTEMI) myocardial infarction (2) Acute systolic CHF (congestive heart failure): Status: Acute Category: Medical Code(s): I50.21 - Acute systolic (congestive) heart failure (3) ACS (acute coronary syndrome): Status: Acute Category: Medical Code(s): I24.9 - Acute ischemic heart disease, unspecified (4) Elevated liver enzymes: Status: Acute Category: Medical Code(s): R74.8 - Abnormal levels of other serum enzymes (5) RAQUEL (acute kidney injury): Status: Acute Category
--- NOTE | 2022-08-16 15:44 | PC.NURSE ---
No acute changes noted. Patient up to chair for majority of shift. VS stable and patient remained on room air. Heart rhythm Normal sinus on monitor.
--- NOTE | 2022-08-16 22:42 | ECG_ITS ---
APPROVED REPORT Exam: Resting ECG HR:64 bpm ECG Measurements Heart Rate 64 AXES IN 174 P 53 QRSd 158 QRS -11 QT 468 T 152 QTc 477 Conclusion SINUS RHYTHM INTRAVENTRICULAR CONDUCTION DELAY [130+ ms QRS DURATION] LATERAL MYOCARDIAL INFARCTION , OF INDETERMINATE AGE [40+ ms Q WAVE AND/OR ST/T ABNORMALITY IN I/aVL/V5/V6] ABNORMAL ECG UNCONFIRMED REPORT Electronically signed by : Mateo Epstein MD 08/17/2022 02:50:55
[2022-08-17] VITALS (8 sets, daily range): BP systolic 93–129; BP diastolic 52–90; PULSE 51–70; RESP 16–19; TEMP 36.4–36.7; O2SAT 94–100; BMI 30.4
--- NOTE | 2022-08-17 04:47 | PC.NURSE ---
HAS RESTED WELL THIS SHIFT. HR REGULAR, SR/BBB PROLONGED QTI , AND Q WAVES NOTED ON TELE. DENIES SOA/PAIN/DISCOMFORT. 98% 02 SAT ON ROOM AIR. BPs RUN LOW, HYDRALAZINE WAS HELD AT 2100.
[2022-08-17 05:59] LABS: Alanine Aminotransferase 60 U/L (12-78); Albumin Level 3.1 g/dl (3.5-5.0); Albumin/Globulin Ratio 1.3 (1.1-1.8); Alkaline Phosphatase 85 U/L (38-126); Anion Gap 14.6 mEq/L (5-15); Aspartate Amino Transferase 28 U/L (17-59); Bilirubin,Total 0.4 mg/dl (0.2-1.3); Calcium 7.3 mg/dl (8.4-10.2); Carbon Dioxide 19 mmol/L (22.0-30.0); Chloride 103 mmol/L (98-107); Creatinine Clearance Estimated 18 mL/min (50-200); Estimated Glomerular Filt Rate 12 ml/min (>60); GFR (African American) 15 ML/MIN (>60); Globulin 2.4 g/dL (1.3-3.2); Glucose 160 mg/dl (74-100); Potassium 4.6 mmoL/L (3.5-5.1); Sodium 132 mmol/L (136-145); Total Protein,Serum 5.5 g/dl (6.3-8.2)
[2022-08-17 06:03] LABS: Blood Urea Nitrogen 112 mg/dl (9-20)
--- NOTE | 2022-08-17 06:03 | PC.NURSE ---
AT 066 LAB REPORTS 2 CRITICAL LAB VALUES : BUN 112 AND CREATINE 4.70. BOTH CRITICALS REPORTED TO JOSE EDUARDO WILLAMS.
[2022-08-17 08:51] LABS: NT Pro Brain Natriuretic Pep. 10300 pg/mL (0-450)
--- NOTE | 2022-08-17 10:30 | EXP.CARD.PN ---
Subjective Subjective Date: 08/17/22 Time: 08:00 Principal diagnosis: nstemi, raquel Interval history: Patient doing well this morning, reports no events over the evening. Denies chest pain or shortness of breath. Was fitted for LifeVest this morning. A.m. labs reviewed creatinine noted to be up to 4.7 and BUN 112 Exam Data for Last 24 hours Vital signs and Labs for Last 24 Hours: Temp Pulse Resp BP Pulse Ox 98.1 F 69 18 129/79 100 08/17/22 07:54 08/17/22 07:54 08/17/22 07:54 08/17/22 07:54 08/17/22 07:54 Laboratory Results - last 24 hr 08/17/22 05:35: Sodium 132 L, Potassium 4.6, Chloride 103, Carbon Dioxide 19 L, Anion Gap 14.6, BUN 112 H*, Creatinine 4.70 H D, Estimated Creat Clear 18, Estimated GFR 12 L*, Est GFR ( Amer) 15 L*, Glucose 160 H, Calcium 7.3 L, Total Bilirubin 0.4, AST 28 D, ALT 60, Alkaline Phosphatase 85, Total Protein 5.5 L, Albumin 3.1 L, Globulin 2.4, Albumin/Globulin Ratio 1.3 08/17/22 05:35: NT-Pro-B Natriuret Pep 96449 H I & O for Last 24 hours: Intake & Output 08/14/22 08/15/22 08/16/22 08/17/22 23:59 23:59 23:59 23:59 Intake Total 1660 / 1770 1310 / 1310 960 / 960 480 / 480 Output Total 700 / 700 0 / 250 551 / 552 Balance 960 / 1070 1310 / 1060 409 / 408 479 / 479 Weight 225 lb 15.581 oz 225 lb 15.581 oz 224 lb 7.983 oz 224 lb 13.944 oz Microbiology Reports for the Last 24 Hours: Microbiology 08/14/22 09:13 Blood Blood Culture - Preliminary NO GROWTH AFTER 48 HOURS 08/14/22 09:13 Blood Blood Culture - Preliminary NO GROWTH AFTER 48 HOURS Constitutional Constitutional: no acute distress *Routine Respiratory Exam Respiratory: Present CTA bilaterally and symmetric chest movement *Routine Cardiovascular Exam Cardiovascular: Present RRR, Normal S1 and Normal S2 *Routine Abdominal Exam Abdominal: Present soft and normoactive bowel sounds; Absent tenderness *Routine Extremities Exam Extremities: Present full ROM and normal capillary refill; Absent edema *Routine Skin Exam Skin: Present intact, dry and warm Detailed Neck Exam: Thyroids Thyroid: Absent bruit Progress Note: A&P Assessment and plan (1) NSTEMI (non-ST elevated myocardial infarction): Status: Acute (2) Acute systolic CHF (congestive heart failure): Status: Acute (3) ACS (acute coronary syndrome): Status: Acute (4) Elevated liver enzymes: Status: Acute (5) RAQUEL (acute kidney injury): Status: Acute (6) Atrial fibrillation with RVR: Status: Acute Assessment and Plan Assessment and Plan for All Diagnoses:: ACS/Nstemi -Pathological Q waves noted in inferior leads with nonspecific st changes indicative of recent [place] -Troponin -. -Continue Hep drip. -Patient was initially given brilinta. Will switch to plavix due to worsening soa. Continue DAPT with aspirin and plavix. No bb due to acute CHF. Holding statin due to elevated liver enzymes -Plan for LHC after kidney function normalizes. 08/17/2022: Creatinine continues to rise.? Patient remains stable.? Denies chest pain or shortness of breath.? Plan to hold off with left heart cath due to worsening RAQUEL.? Will address outpatient on Saturday.? Continue DAPT with Plavix and aspirin, Coreg 3.125 twice daily and Crestor 40 mg daily. Acute HFrEF/Grade one DD- NYHA III -Echo 08/13/2022: Biatrial enlargement, dilated left ventricle, severely reduced LV function, estimated ejection fraction 20% with multiple segmental wall motion abnormalities noted.? Doppler evidence of low cardiac output state, grade 1 diastolic dysfunction. -Negative 1600 mL balance -Continue Lisinopril 10mg daily while closely monitoring kidney function. No BB at this time due to low cardiac state and acute chf. Continue Lasix 40mg IV daily. Consider addition of aldactone and jardiance later. 08/17/2022: No signs of volume overload noted. No LORAINE/ARB due to RAQUEL, continue hydralazine 25 mg p.
--- NOTE | 2022-08-17 14:44 | EXP.ACUTE.PN ---
Subjective *Date: 08/17/22 *Time: 14:44 Interval history: Feels well discussed findings, no confusion or tremors Medical Exam Vital signs and Labs for Last 24 Hours: Vital Signs Temp Pulse Pulse Resp BP Pulse Ox 08/17/22 12:00 51 L 08/17/22 11:42 97.7 F 59 L 18 129/90 94 L 08/17/22 07:54 98.1 F 69 18 129/79 100 08/17/22 04:00 60 08/17/22 04:00 98.1 F 62 16 93/52 L 98 08/17/22 00:00 98.1 F 61 16 99/54 L 98 08/17/22 00:00 63 08/16/22 20:00 98 08/16/22 20:00 61 08/16/22 20:00 97.9 F 61 16 112/56 L 98 08/16/22 16:00 72 08/16/22 15:22 97.5 F L 66 18 84/46 L 99 Intake and Output 08/16/22 08/17/22 08/17/22 23:59 07:59 15:59 Intake Total 600 / 960 480 / 960 480 / 960 Output Total 300 / 301 Balance 599 / 408 479 / 659 180 / 659 Intake: Intake, Oral Amount 600 / 960 480 / 960 480 / 960 Output: Output, Urine Amount 300 / 301 Other: Number of Unmeasured Voids 300 200 1 Number of Bowel Movements 1 Weight 102 kg Patient Weight 08/17/22 23:59 Weight 102 kg Laboratory Results - last 24 hr 08/17/22 05:35: Sodium 132 L, Potassium 4.6, Chloride 103, Carbon Dioxide 19 L, Anion Gap 14.6, BUN 112 H*, Creatinine 4.70 H D, Estimated Creat Clear 18, Estimated GFR 12 L*, Est GFR ( Amer) 15 L*, Glucose 160 H, Calcium 7.3 L, Total Bilirubin 0.4, AST 28 D, ALT 60, Alkaline Phosphatase 85, Total Protein 5.5 L, Albumin 3.1 L, Globulin 2.4, Albumin/Globulin Ratio 1.3 08/17/22 05:35: NT-Pro-B Natriuret Pep 74420 H I & O for Labs for Last 24 Hours: Intake & Output 08/14/22 08/15/22 08/16/22 08/17/22 23:59 23:59 23:59 23:59 Intake Total 1660 / 1770 1310 / 1310 960 / 960 960 / 960 Output Total 700 / 700 0 / 250 551 / 552 301 / 301 Balance 960 / 1070 1310 / 1060 409 / 408 659 / 659 Weight 102.5 kg 102.5 kg 101.831 kg 102 kg Microbiology Reports for the Last 24 Hours: Microbiology 08/14/22 09:13 Blood Blood Culture - Preliminary NO GROWTH AFTER 48 HOURS 08/14/22 09:13 Blood Blood Culture - Preliminary NO GROWTH AFTER 48 HOURS Constitutional: Present mild distress, obese and chronically ill appearing Head: Present atraumatic and normocephalic ENT: Present normal exam Neck: Present normal inspection Respiratory: Present normal respiratory effort; Absent accessory muscle use, rhonchi, wheezes or crackles Cardiac: Present Reg Rate and Rhythm GI: Present soft and normal bowel sounds; Absent distention or tenderness Extremities: Present normal inspection, full ROM and edema (interval improvement) Comment:: no asterixis Skin: Present intact; Absent erythema Neuro: Present Grossly Intact, alert, awake, oriented x 3 and moves all extremities Assessment and Plan *Assessment and plan (1) NSTEMI (non-ST elevated myocardial infarction): Status: Acute Category: Medical Code(s): I21.4 - Non-ST elevation (NSTEMI) myocardial infarction (2) Acute systolic CHF (congestive heart failure): Status: Acute Category: Medical Code(s): I50.21 - Acute systolic (congestive) heart failure (3) ACS (acute coronary syndrome): Status: Acute Category: Medical Code(s): I24.9 - Acute ischemic heart disease, unspecified (4) Elevated liver enzymes: Status: Acute Category: Medical Code(s): R74.8 - Abnormal levels of other serum enzymes (5) RAQUEL (acute kidney injury): Status: Acute Category: Medical Code(s): N17.9 - Acute kidney failure, unspecified (6) Atrial fibrillation with RVR: Status: Acute Category: Medical Code(s): I48.91 - Unspecified atrial fibrillation Plan 77-year-old male who presented with atypical chest/back pain.? Found to have NSTEMI with concern for being at least 24 to 48 hours post [place] based on history and EKG finding
[2022-08-17 14:59] LABS: Microscopic, Urine URINE MICROSCOPIC (MICROSCOPIC)
[2022-08-17 15:02] LABS: Appearance,Urine SL CLOUDY (Clear); Bilirubin,Urine Negative (Negative); Blood, Urine 1+ (Negative); Color,Urine YELLOW (Yellow); Glucose,Urine (UA) Negative (Negative); Ketones,Urine Negative (Negative); Leukocyte Esterase,Urine TRACE (Negative); Nitrate,Urine Negative (Negative); PH,Urine 5.5 (5.0-8.5); Protein,Urine Negative (Negative); Specific Gravity, Urine >= 1.030 (1.005-1.030); Urobilinogen,Urine 0.2 EU/dl (0.2)
[2022-08-17 15:22] LABS: Bacteria,Urine 1+ /lpf; Uric Acid Crystals,Urine Trace /lpf; WBC,Urine Occasional #/hpf (0-3)
--- NOTE | 2022-08-17 16:36 | PC.NURSE ---
pt has been pleasant this shift. vss have been stable, b/p meds admin. 1600 b/p was soft. 90s/50s in the lt arm, 113/57 in the rt arm.. pts states hes never had b/p problems before this admission. will cont to monitor b/p. nsr on tele with prolonged QT. mian on the monitor in the 50s. family at bedside, pt up to chair. no concerns a tthis time. encourage pt to drink water instead of soda pop.
[2022-08-18] VITALS (8 sets, daily range): BP systolic 92–129; BP diastolic 50–73; PULSE 50–66; RESP 16–18; TEMP 36.4–36.8; O2SAT 94–99; BMI 30.4
[2022-08-18 07:46] LABS: Basophils % 0.1 % (0.1-2.0); Chloride 103 mmol/L (98-107); Eosinophils # 0.1 K/mm3 (0.0-0.4); Eosinophils % 0.6 % (0.1-12.0); Hematocrit 36.1 % (42.0-52.0); Lymphocytes # 2.4 K/mm3 (0.7-4.5); Lymphocytes % 13.6 % (10-50); Mean Corpuscular HGB Conc 33.3 g/dL (31.8-35.4); Mean Corpuscular Hemoglobin 30.7 pg (27.0-31.2); Mean Corpuscular Volume 92.1 fl (80-94); Mean Platelet Volume 9.8 fl (7.4-10.4); Monocytes # 1.5 K/mm3 (0.1-1.0); Monocytes % 8.4 % (1.7-9.3); Neutrophils # 13.8 K/mm3 (1.8-7.8); Neutrophils % 77.3 % (37.0-80.0); Platelet Count 407 K/mm3 (142-424); Red Blood Count 3.92 M/mm3 (4.60-6.20); Red Cell Distribution Width 14.9 % (11.5-17.5); Sodium 134 mmol/L (136-145); White Blood Count 17.8 K/mm3 (4.8-10.8)
[2022-08-18 07:47] LABS: Potassium 4.2 mmoL/L (3.5-5.1)
[2022-08-18 07:49] LABS: Alanine Aminotransferase 47 U/L (12-78); Albumin Level 3.2 g/dl (3.5-5.0); Albumin/Globulin Ratio 1.3 (1.1-1.8); Alkaline Phosphatase 78 U/L (38-126); Anion Gap 16.2 mEq/L (5-15); Aspartate Amino Transferase 24 U/L (17-59); Bilirubin,Total 0.6 mg/dl (0.2-1.3); Carbon Dioxide 19 mmol/L (22.0-30.0); Creatinine Clearance Estimated 16 mL/min (50-200); Estimated Glomerular Filt Rate 10 ml/min (>60); GFR (African American) 12 ML/MIN (>60); Globulin 2.5 g/dL (1.3-3.2); Phosphorous 7.1 mg/dl (2.5-4.5); Total Protein,Serum 5.7 g/dl (6.3-8.2)
[2022-08-18 07:50] LABS: Calcium 7.6 mg/dl (8.4-10.2); Glucose 111 mg/dl (74-100); Magnesium 2.4 mg/dl (1.6-2.3)
[2022-08-18 07:57] LABS: MANUAL DIFFERENTIAL MANUAL DIFFERENTIAL (MANUAL DIFF)
[2022-08-18 08:32] LABS: Blood Urea Nitrogen 127 mg/dl (9-20)
--- NOTE | 2022-08-18 08:32 | PC.NURSE ---
received critical lab results at [address] Long notified present at time of receiving criticals. results repeated and verified back. received critical lab results 0832 BUN 127. lab results repeated and verified back. Dr Long present at time of results being received and notified at same time. primary RN notified of critical lab results as well.
[2022-08-18 08:45] LABS: Lymphocytes % 10 % (10-50); Monocytes % 3 % (2-9); Neutrophils % 87 % (42-76); Total Cells Counted 100
[2022-08-18 08:46] LABS: Platelet Estimate Normal; RBC Morphology Normal
--- NOTE | 2022-08-18 10:12 | PC.NURSE ---
courtesy tech note; rounded on pt, pt sleeping at this time. pts family member denies the need for a drink or assistance with bathing. no further requests at this time. Call light within reach. SALOME Montelongo
--- NOTE | 2022-08-18 14:46 | EXP.ACUTE.PN ---
Subjective *Date: 08/18/22 *Time: 17:15 Interval history: Patient doing well this morning. Having adequate urine output without diuresis. No chest pain or shortness of breath overnight. Stable on room air. Heart rate controlled. Labs reviewed this morning showing persistent leukocytosis and continued worsening of RAQUEL with creatinine of 5.4. Tolerating p.o. intake. Ambulating to the bathroom. Afebrile overnight. Denies nausea, vomiting, confusion. Medical Exam Vital signs and Labs for Last 24 Hours: Vital Signs Temp Pulse Pulse Resp BP Pulse Ox 08/18/22 12:00 58 L 08/18/22 08:00 58 L 08/18/22 11:39 97.8 F 60 18 109/64 L 97 08/18/22 08:00 97 08/18/22 07:53 98.3 F 60 18 129/73 98 08/17/22 20:00 63 08/18/22 00:00 58 L 08/18/22 04:00 50 L 08/18/22 04:00 97.9 F 57 L 16 92/54 L 96 08/18/22 00:00 97.9 F 61 16 99/59 L 96 08/17/22 20:00 61 97 08/17/22 20:00 97.5 F L 61 16 110/60 97 08/17/22 16:00 60 08/17/22 16:00 97.7 F 56 L 19 113/57 L 97 Intake and Output 08/17/22 08/18/22 08/18/22 23:59 07:59 15:59 Intake Total 740 / 1700 480 / 960 480 / 960 Output Total 801 / 1251 450 / 1251 Balance 740 / 1399 -321 / -291 30 / -291 Intake: Intake, Oral Amount 240 / 1200 480 / 960 480 / 960 Intake, Total IV Amount 500 / 500 0.9 % Sodium Chloride 1000ML 500 / 500 500 ml @ 50 mls/hr IV .Q10H ONE Rx#:[id number] Output: Output, Urine Amount 801 / 1251 450 / 1251 Other: Number of Unmeasured Voids 1 1 Weight 102 kg Patient Weight 08/18/22 23:59 Weight 102 kg Laboratory Results - last 24 hr 08/17/22 13:09: Urine Color Yellow, Urine Appearance Sl cloudy, Urine pH 5.5, Ur Specific [place] >= 1.030, Urine Protein Negative, Urine Glucose (UA) Negative, Urine Ketones Negative, Urine Blood 1+, Urine Nitrate Negative, Urine Bilirubin Negative, Urine Urobilinogen 0.2, Ur Leukocyte Esterase Trace, Urine RBC 10-20, Urine WBC Occasional, Ur Squamous Epith Cells 5-10, Uric Acid Crystals Trace, Urine Bacteria 1+ 08/18/22 07:20: WBC 17.8 H, RBC 3.92 L, Hgb 12.0 L, Hct 36.1 L, MCV 92.1, MCH 30.7, MCHC 33.3, RDW 14.9, Plt Count 407, MPV 9.8, Neut % (Auto) 77.3, Lymph % (Auto) 13.6, [place] % (Auto) 8.4, Eos % (Auto) 0.6, Baso % (Auto) 0.1, Neut # (Auto) 13.8 H, Lymph # (Auto) 2.4, [place] # (Auto) 1.5 H, Eos # (Auto) 0.1, Baso # (Auto) 0.0, Total Counted 100, Neutrophils % (Manual) 87 H, Lymphocytes % (Manual) 10, Monocytes % (Manual) 3, Platelet Estimate Normal, RBC Morphology Normal 08/18/22 07:20: Sodium 134 L, Potassium 4.2, Chloride 103, Carbon Dioxide 19 L, Anion Gap 16.2 H, BUN 127 H*, Creatinine 5.40 H, Estimated Creat Clear 16, Estimated GFR 10 L*, Est GFR ( Amer) 12 L*, Glucose 111 H, Calcium 7.6 L, Phosphorus 7.1 H, Magnesium 2.4 H, Total Bilirubin 0.6, AST 24, ALT 47, Alkaline Phosphatase 78, Total Protein 5.7 L, Albumin 3.2 L, Globulin 2.5, Albumin/Globulin Ratio 1.3 I & O for Labs for Last 24 Hours: Intake & Output 08/15/22 08/16/22 08/17/22 08/18/22 23:59 23:59 23:59 23:59 Intake Total 1310 / 1310 960 / 960 1700 / 1700 960 / 960 Output Total 0 / 250 551 / 552 301 / 301 1251 / 1251 Balance 1310 / 1060 409 / 408 1399 / 1399 -291 / -291 Weight 102.5 kg 101.831 kg 102 kg 102 kg Constitutional: Present mild distress, obese and chronically ill appearing Head: Present atraumatic and normocephalic ENT: Present normal exam Neck: Present normal inspection Respiratory: Present normal respiratory effort; Absent accessory muscle use, rhonchi, wheezes or crackles Cardiac: Present Reg Rate and Rhythm GI: Present soft and normal bowel sounds; Absent distention or tenderness Extremities: Present normal inspection, full ROM and edema (interval improvement, trace BLE) Skin: Present intact; Absent erythema Neuro: Present Grossly Intact, alert, awake, oriented x 3 and moves all extremities Assessment and Plan *Assess
[2022-08-18 19:09] LABS: Chloride 106 mmol/L (98-107); Potassium 5.8 mmoL/L (3.5-5.1); Sodium 135 mmol/L (136-145)
[2022-08-18 19:12] LABS: Anion Gap 19.8 mEq/L (5-15); Calcium 7.8 mg/dl (8.4-10.2); Carbon Dioxide 15 mmol/L (22.0-30.0); Creatinine Clearance Estimated 16 mL/min (50-200); Estimated Glomerular Filt Rate 10 ml/min (>60); GFR (African American) 12 ML/MIN (>60); Glucose 149 mg/dl (74-100)
[2022-08-18 19:34] LABS: Blood Urea Nitrogen 138 mg/dl (9-20)
--- NOTE | 2022-08-18 19:39 | PC.NURSE ---
AT 1930 LAB CALLED CRITICAL LABS: BUN 138 AND CREATINE 5.4. WENDY WILLAMS NOTIFIED.
[2022-08-19] VITALS (10 sets, daily range): BP systolic 110–143; BP diastolic 56–71; PULSE 60–70; RESP 17–19; TEMP 36.5–37.2; O2SAT 95–99; BMI 30.4
--- NOTE | 2022-08-19 04:54 | PC.NURSE ---
PATIENT HAS RESTED WELL. DENIES CHEST PAIN OR SOA. REPORTS PATIENT C/O OF SORE ON RIGHT SIDE OF TONGUE. WAS UNABLE TO FIND ABNORMALITY. VITAL SIGNS STABLE/AFEBRILE. SINUS RHYTHM/BBB NOTED ON TELEMETRY.
[2022-08-19 07:45] LABS: Basophils % 0.3 % (0.1-2.0); Eosinophils # 0.4 K/mm3 (0.0-0.4); Eosinophils % 2.4 % (0.1-12.0); Hematocrit 41.4 % (42.0-52.0); Hemoglobin 12.9 g/dL (14.1-18.0); Lymphocytes # 1.9 K/mm3 (0.7-4.5); Lymphocytes % 12.6 % (10-50); Mean Corpuscular Hemoglobin 28.7 pg (27.0-31.2); Mean Corpuscular Volume 92.5 fl (80-94); Mean Platelet Volume 9.8 fl (7.4-10.4); Monocytes # 1.5 K/mm3 (0.1-1.0); Monocytes % 9.8 % (1.7-9.3); Neutrophils # 11.2 K/mm3 (1.8-7.8); Neutrophils % 74.9 % (37.0-80.0); Platelet Count 459 K/mm3 (142-424); Red Blood Count 4.48 M/mm3 (4.60-6.20)
[2022-08-19 07:46] LABS: Chloride 105 mmol/L (98-107); Sodium 137 mmol/L (136-145)
[2022-08-19 07:49] LABS: Alanine Aminotransferase 44 U/L (12-78); Albumin Level 3.5 g/dl (3.5-5.0); Albumin/Globulin Ratio 1.2 (1.1-1.8); Alkaline Phosphatase 89 U/L (38-126); Aspartate Amino Transferase 22 U/L (17-59); Bilirubin,Total 0.7 mg/dl (0.2-1.3); Carbon Dioxide 22 mmol/L (22.0-30.0); Creatinine Clearance Estimated 18 mL/min (50-200); Estimated Glomerular Filt Rate 12 ml/min (>60); GFR (African American) 14 ML/MIN (>60); Phosphorous 5.9 mg/dl (2.5-4.5); Total Protein,Serum 6.5 g/dl (6.3-8.2)
[2022-08-19 07:50] LABS: Calcium 7.9 mg/dl (8.4-10.2); Glucose 98 mg/dl (74-100)
[2022-08-19 07:51] LABS: MANUAL DIFFERENTIAL MANUAL DIFFERENTIAL (MANUAL DIFF)
--- NOTE | 2022-08-19 07:53 | PC.NURSE ---
pt c/o soreness to tongue. oral care performed and moisturizer applied to oral cavity.
[2022-08-19 07:57] LABS: Blood Urea Nitrogen 130 mg/dl (9-20)
[2022-08-19 09:22] LABS: Eosinophils % 2 % (0-3); Lymphocytes % 15 % (10-50); Monocytes % 7 % (2-9); Neutrophils % 76 % (42-76); Platelet Estimate Slight Increase; RBC Morphology Normal; Total Cells Counted 100
--- NOTE | 2022-08-19 12:12 | EXP.ACUTE.PN ---
Subjective *Date: 08/19/22 *Time: 12:12 Medical Exam Vital signs and Labs for Last 24 Hours: Vital Signs Temp Pulse Pulse Resp BP Pulse Ox 08/19/22 11:41 98.9 F 64 18 110/58 L 96 08/19/22 08:00 70 08/19/22 07:24 98.1 F 69 19 123/62 96 08/19/22 04:00 97.7 F 65 18 120/60 97 08/19/22 04:00 65 08/19/22 00:00 65 08/19/22 00:00 98.5 F 65 18 135/67 96 08/18/22 20:00 99 08/18/22 20:00 60 08/18/22 20:00 97.5 F L 66 18 121/67 99 08/18/22 16:00 58 L 08/18/22 16:00 97.9 F 59 L 18 100/50 L 94 L Intake and Output 08/18/22 08/19/22 08/19/22 23:59 07:59 15:59 Intake Total 600 / 1800 720 / 720 Output Total 950 / 2201 500 / 500 Balance -350 / -401 220 / 220 Intake: Intake, Oral Amount 600 / 1800 720 / 720 Output: Output, Urine Amount 950 / 2201 500 / 500 Other: Number of Voids 1 Number of Unmeasured Voids 1 0 Number of Bowel Movements 2 1 Weight 102 kg Patient Weight 08/19/22 23:59 Weight 102 kg Laboratory Results - last 24 hr 08/18/22 18:25: Sodium 135 L, Potassium 5.8 H D, Chloride 106, Carbon Dioxide 15 L, Anion Gap 19.8 H, BUN 138 H*, Creatinine 5.40 H, Estimated Creat Clear 16, Estimated GFR 10 L*, Est GFR ( Amer) 12 L*, Glucose 149 H D, Calcium 7.8 L 08/19/22 07:30: WBC 15.0 H, RBC 4.48 L, Hgb 12.9 L, Hct 41.4 L, MCV 92.5, MCH 28.7, MCHC 31.0 L, RDW 15.0, Plt Count 459 H, MPV 9.8, Neut % (Auto) 74.9, Lymph % (Auto) 12.6, [place] % (Auto) 9.8 H, Eos % (Auto) 2.4, Baso % (Auto) 0.3, Neut # (Auto) 11.2 H, Lymph # (Auto) 1.9, [place] # (Auto) 1.5 H, Eos # (Auto) 0.4, Baso # (Auto) 0.0, Total Counted 100, Neutrophils % (Manual) 76, Lymphocytes % (Manual) 15, Monocytes % (Manual) 7, Eosinophils % (Manual) 2, Platelet Estimate Slight increase, RBC Morphology Normal 08/19/22 07:30: Sodium 137, Potassium 5.0, Chloride 105, Carbon Dioxide 22, Anion Gap 15.0, BUN 130 H*, Creatinine 4.90 H, Estimated Creat Clear 18, Estimated GFR 12 L*, Est GFR ( Amer) 14 L*, Glucose 98 D, Calcium 7.9 L, Phosphorus 5.9 H, Total Bilirubin 0.7, AST 22, ALT 44, Alkaline Phosphatase 89, Total Protein 6.5, Albumin 3.5, Globulin 3.0, Albumin/Globulin Ratio 1.2 I & O for Labs for Last 24 Hours: Intake & Output 08/16/22 08/17/22 08/18/22 08/19/22 23:59 23:59 23:59 23:59 Intake Total 960 / 960 1700 / 1700 1560 / 1800 720 / 720 Output Total 551 / 552 301 / 301 2201 / 2201 500 / 500 Balance 409 / 408 1399 / 1399 -641 / -401 220 / 220 Weight 101.831 kg 102 kg 102 kg 102 kg Microbiology Reports for the Last 24 Hours: Microbiology 08/14/22 09:13 Blood Blood Culture - Final NO GROWTH AFTER 5 DAYS 08/14/22 09:13 Blood Blood Culture - Final NO GROWTH AFTER 5 DAYS Assessment and Plan *Assessment and plan (1) NSTEMI (non-ST elevated myocardial infarction): Status: Acute Category: Medical Code(s): I21.4 - Non-ST elevation (NSTEMI) myocardial infarction (2) Acute systolic CHF (congestive heart failure): Status: Acute Category: Medical Code(s): I50.21 - Acute systolic (congestive) heart failure (3) Thrush: Status: Acute Category: Medical Code(s): B37.0 - Candidal stomatitis (4) ACS (acute coronary syndrome): Status: Acute Category: Medical Code(s): I24.9 - Acute ischemic heart disease, unspecified (5) Elevated liver enzymes: Status: Acute Category: Medical Code(s): R74.8 - Abnormal levels of other serum enzymes (6) RAQUEL (acute kidney injury): Status: Acute Category: Medical Code(s): N17.9 - Acute kidney failure, unspecified (7) Atrial fibrillation with RVR: Status: Acute Category: Medical Code(s): I48.91 - Unspecified atrial fibrillation Plan 77-year-old male who presented with atypical chest/back pain.? Found to have NSTEMI wit
[2022-08-19 18:37] LABS: Chloride 105 mmol/L (98-107); Potassium 5.2 mmoL/L (3.5-5.1); Sodium 136 mmol/L (136-145)
[2022-08-19 18:40] LABS: Anion Gap 14.2 mEq/L (5-15); Calcium 7.8 mg/dl (8.4-10.2); Carbon Dioxide 22 mmol/L (22.0-30.0); Creatinine Clearance Estimated 18 mL/min (50-200); Estimated Glomerular Filt Rate 12 ml/min (>60); GFR (African American) 14 ML/MIN (>60); Glucose 175 mg/dl (74-100)
--- NOTE | 2022-08-19 18:50 | PC.NURSE ---
NO ACUTE CHANGES THIS SHIFT. AMBULATING IN ROOM WITHOUT DIFFICULTY. SPENT MOST OF SHIFT UP TO CHAIR. TOLERATING PO INTAKE WELL. NOT REQUIRING O2 SUPPORT. DENIES CHEST PAIN.
[2022-08-19 18:55] LABS: Blood Urea Nitrogen 124 mg/dl (9-20)
[2022-08-20] VITALS: PULSE 60
[2022-08-20 04:00] VITALS: BP 134/72; PULSE 60; PULSE 70; RESP 20; TEMP 36.6; O2SAT 97; BMI 30.5
--- NOTE | 2022-08-20 05:31 | PC.NURSE ---
NO ACUTE CHANGES SINCE PREVIOUS ASSESSMENT. REMAINS ON ROOM AIR. VSS. NO C/O N/V/D OR PAIN THIS SHIFT. AMBULATING WITH IN ROOM. CALL CED[facility]O WITHIN REACH.
[2022-08-20 06:44] LABS: Chloride 110 mmol/L (98-107); Sodium 138 mmol/L (136-145)
[2022-08-20 06:45] LABS: Potassium 5.3 mmoL/L (3.5-5.1)
[2022-08-20 06:47] LABS: Alanine Aminotransferase 35 U/L (12-78); Albumin Level 3.3 g/dl (3.5-5.0); Albumin/Globulin Ratio 1.2 (1.1-1.8); Alkaline Phosphatase 81 U/L (38-126); Anion Gap 13.3 mEq/L (5-15); Aspartate Amino Transferase 27 U/L (17-59); Bilirubin,Total 0.7 mg/dl (0.2-1.3); Carbon Dioxide 20 mmol/L (22.0-30.0); Creatinine Clearance Estimated 20 mL/min (50-200); Estimated Glomerular Filt Rate 13 ml/min (>60); GFR (African American) 16 ML/MIN (>60); Globulin 2.7 g/dL (1.3-3.2)
[2022-08-20 06:48] LABS: Calcium 7.9 mg/dl (8.4-10.2); Glucose 110 mg/dl (74-100)
[2022-08-20 06:56] LABS: Blood Urea Nitrogen 117 mg/dl (9-20)
[2022-08-20 07:02] LABS: Basophils % 0.1 % (0.1-2.0); Eosinophils # 0.2 K/mm3 (0.0-0.4); Eosinophils % 1.4 % (0.1-12.0); Hematocrit 38.5 % (42.0-52.0); Hemoglobin 12.2 g/dL (14.1-18.0); Lymphocytes # 1.8 K/mm3 (0.7-4.5); Lymphocytes % 13.5 % (10-50); Mean Corpuscular HGB Conc 31.7 g/dL (31.8-35.4); Mean Corpuscular Hemoglobin 29.3 pg (27.0-31.2); Mean Corpuscular Volume 92.7 fl (80-94); Mean Platelet Volume 8.7 fl (7.4-10.4); Monocytes # 1.2 K/mm3 (0.1-1.0); Monocytes % 8.9 % (1.7-9.3); Neutrophils # 9.8 K/mm3 (1.8-7.8); Platelet Count 356 K/mm3 (142-424); Red Blood Count 4.15 M/mm3 (4.60-6.20); Red Cell Distribution Width 15.2 % (11.5-17.5); White Blood Count 12.9 K/mm3 (4.8-10.8)
[2022-08-20 07:46] VITALS: BP 135/71; PULSE 69; RESP 18; TEMP 36.8; O2SAT 96
[2022-08-20 08:00] VITALS: PULSE 70
--- NOTE | 2022-08-20 09:06 | HMH.OTEV ---
OT Inpatient Evaluation Rehab OT IP Evaluation Start: 08/19/22 16:53 Freq: ONCE Status: Active Protocol: Document 08/20/22 09:02 TEAGAN (Rec: 08/20/22 09:06 [id number] Rehab OT IP Assessment Subjective History Pt oriented x 3 on arrival. present and supportive. Pt agreeable to engage in therapy evaluation. Pt was admitted on 08/13/22 due to N Stemi, weakness, dyspnea with exertion, and back pain. Prior to being in the hosptial , pt lived at home with his . Pt claims he was independent with all ADLs and IADLs. Pt still drove. Pt did not require any type of AE during ambulation. Subjective I can do whatever I need to. Objective Patient Orientation Person,Place,Birthday Upper Extremity Gross ROM WFL Bed Mobility bed mobility-scooting,bed mobility - supine/sit,bed mobility - rolling Assist Level Supervision/Stand by Transfer Training Sit/Stand Transfer Assist Level Supervision/Stand by Chair Transfer Ability Supervision/Stand by Chair Transfer Technique Sit to/from Ambulatory Chair Transfer Assistive Devices None Lower Body Dressing Ability Standby Assistance Performing Toilet Hygiene Ability Standby Assistance Overall Commode/Toilet Transfer Ability Standby Assistance Commode/Toilet Transfer Technique Sit to/from Ambulatory Commode/Toilet Transfer Assistive Grab Bars Devices Rehab OT IP prob,goals,plan Problems Date of Evaluation: 08/20/22 Rehab Potential Rehab Potential Innapropriate for Skilled Therapy Discharge Plan OT Discharge Plan At this time, pt appears to be at his baseline with functional transfers and ADL independence. Pt can return home with once medically stable per physician. Pt would benefit from outpatient cardiac rehab or OT evaluation upon returning home . Eval Complexity Eval Charge Codes 39887 - Low Complexity G Codes G -code Required No
--- NOTE | 2022-08-20 10:21 | HMH.PTEV ---
Physical Therapy Evaluation Rehab PT IP Evaluation Start: 08/19/22 16:53 Freq: ONCE Status: Active Protocol: Document 08/20/22 10:17 BREANNA (Rec: 08/20/22 10:20 BREANNA [id number]) Subjective/History History History 77 yowm adm to [facility] feeling weak found to have NSTEMI. He reports he lives with spouse, 2 steps to enter the home, and he is generally independent with all mobility without an AD. Subjective Subjective He reports feeling much better and agrees to mobility assessment. Rehab PT IP Eval Objective Appearance Patient Behavior Appropriate Patient Orientation Person,Place,Time Difficulty following instructions none Speech Pattern Clear Ambulation Patient Able to Ambulate Yes Ambulation Observation IP General Gait Pattern Observation No Deviations/Normal Ambulation Distance (feet) 300 Ambulation Assistive Device None Ambulation Ability Independent Balance Ability to Arise Able, uses arms to help Sitting Balance Steady, safe Standing Balance Steady, wide stance Dynamic Sitting Balance Ability Good Dynamic Standing Balance Ability Good Transfers Bed Transfer Ability Independent Chair Transfer Ability Independent Sit to Stand Bed Transfer Ability Independent Sit to Stand Chair Transfer Ability Independent ROM All Extremities PT ROM Status WFL MMT All Extremities PT MMT WFL Rehab PT IP prob,goals,plan Problems Date of Evaluation: 08/20/22 Discharge Plan PT Discharge Plan Pt is currently independent with all mobility and is appropriate to return home once medically stable for d/c. Recommend outpatient cardiac rehab once appropriate. G -code Required No Eval Complexity Eval Charge Codes 38893 - Moderate Complexity PHYSICIAN CERTIFICATION: I certify the specified therapy services for Jarrod Rose are required, authorized, and reviewed every 30 days.
--- NOTE | 2022-08-20 10:23 | EXP.CARD.PN ---
Subjective Subjective Date: 08/20/22 Time: 10:23 Principal diagnosis: nstemi, raquel Interval history: 77 yo WM in bed in NAD. Being considered for discharge home today. Renal functions improving over the weekend. LifeVest in room. Exam Data for Last 24 hours Vital signs and Labs for Last 24 Hours: Temp Pulse Resp BP Pulse Ox 98.3 F 69 18 135/71 96 08/20/22 07:46 08/20/22 07:46 08/20/22 07:46 08/20/22 07:46 08/20/22 07:46 Laboratory Results - last 24 hr 08/19/22 18:15: Sodium 136, Potassium 5.2 H, Chloride 105, Carbon Dioxide 22, Anion Gap 14.2, BUN 124 H*, Creatinine 4.90 H, Estimated Creat Clear 18, Estimated GFR 12 L*, Est GFR ( Amer) 14 L*, Glucose 175 H D, Calcium 7.8 L 08/20/22 06:07: WBC 12.9 H, RBC 4.15 L, Hgb 12.2 L, Hct 38.5 L, MCV 92.7, MCH 29.3, MCHC 31.7 L, RDW 15.2, Plt Count 356, MPV 8.7, Neut % (Auto) 76.0, Lymph % (Auto) 13.5, [place] % (Auto) 8.9, Eos % (Auto) 1.4, Baso % (Auto) 0.1, Neut # (Auto) 9.8 H, Lymph # (Auto) 1.8, [place] # (Auto) 1.2 H, Eos # (Auto) 0.2, Baso # (Auto) 0.0 08/20/22 06:07: Sodium 138, Potassium 5.3 H, Chloride 110 H, Carbon Dioxide 20 L, Anion Gap 13.3, BUN 117 H*, Creatinine 4.40 H, Estimated Creat Clear 20, Estimated GFR 13 L*, Est GFR ( Amer) 16 L*, Glucose 110 H D, Calcium 7.9 L, Phosphorus 5.0 H, Total Bilirubin 0.7, AST 27, ALT 35, Alkaline Phosphatase 81, Total Protein 6.0 L, Albumin 3.3 L, Globulin 2.7, Albumin/Globulin Ratio 1.2 I & O for Last 24 hours: Intake & Output 08/17/22 08/18/22 08/19/22 08/20/22 11:59 11:59 11:59 11:59 Intake Total 1080 / 1080 1700 / 1700 1800 / 1800 1400 / 1400 Output Total 1101 / 1101 1900 / 1900 2700 / 2700 Balance 1078 / 1078 599 / 599 -100 / -100 -1300 / -1300 Weight 224 lb 13.944 oz 224 lb 13.944 oz 224 lb 13.944 oz 225 lb 4.999 oz Microbiology Reports for the Last 24 Hours: Microbiology 08/14/22 09:13 Blood Blood Culture - Final NO GROWTH AFTER 5 DAYS 08/14/22 09:13 Blood Blood Culture - Final NO GROWTH AFTER 5 DAYS Constitutional Constitutional: no acute distress *Routine Respiratory Exam Respiratory: Present CTA bilaterally *Routine Cardiovascular Exam Cardiovascular: Present RRR *Routine Extremities Exam Extremities: Present edema Progress Note: A&P Assessment and plan (1) NSTEMI (non-ST elevated myocardial infarction): Status: Acute (2) Acute systolic CHF (congestive heart failure): Status: Acute (3) Thrush: Status: Acute (4) ACS (acute coronary syndrome): Status: Acute (5) Elevated liver enzymes: Status: Acute (6) RAQUEL (acute kidney injury): Status: Acute (7) Atrial fibrillation with RVR: Status: Acute Assessment and Plan Assessment and Plan for All Diagnoses:: ACS/Nstemi -Pathological Q waves noted in inferior leads with nonspecific st changes indicative of recent AK -Troponin 22-29. Repeat today -Patient was initially given brilinta. Switched to plavix due to worsening soa. Continue ASA -Plan for [facility] as outpatient after kidney function normalizes. Acute HFrEF/Grade one DD- NYHA III -Echo 08/13/2022: Biatrial enlargement, dilated LV, estimated ejection fraction 20% with multiple segmental WMA noted.? Doppler evidence of low cardiac output state, grade 1 diastolic dysfunction. -Negative balance of 5 Liters -Continue Lisinopril 10mg daily while closely monitoring kidney function. No BB at this time due to low cardiac state and acute chf. Continue Lasix 40mg IV daily. Consider addition of aldactone and jardiance later. - LifeVest in room RAQUEL/Suspected ATN -Initial creatinine on admission was 3.2, today 3.0 -Now down to 4.4 (improving) -Renal ultrasound shows bilateral renal atrophy with findings suggesting medical renal disease.? Elevated liver enzymes -Resolved.? -Start Crestor 40 mg daily. PAF Chadsvasc score 4 -NSR on Amio 200mg p.o. BID CV summary
[2022-08-20 10:56] LABS: Troponin I 7.56 ng/ml (0.00-0.034)
[2022-08-20 11:10] VITALS: BP 122/56; PULSE 60; RESP 18; TEMP 36.5; O2SAT 96
--- NOTE | 2022-08-20 11:36 | EXP.DC.SUM ---
General Admission date:: 08/13/22 Discharge date: 08/20/22 HPI HPI HPI: Mr. Rose is a pleasant 77-year-old male who presented to the ER with shortness of breath worse over the past 48 to 72 hours.? His is with him and gives additional history.? Patient states that Saturday he felt weak and had a fall into the wall with back pain.? Fell because he felt fatigued and more dyspneic with exertion.? Denies any jermaine chest pain, diaphoresis, jermaine syncope.? No previous history of cardiac problems per his report.? He was being evaluated as an outpatient by his PCP prior to having a dental procedure.? EKG obtained showing concern for Q waves and subacute STEMI.? This led to his immediate presentation to the ER at the recommendation of cardiology.? On evaluation in the ER, he denied any chest pain but does complain of some dyspnea.? Medicine consulted for admission. Patient mildly dyspneic on my interview.? Respiratory rate 22-24.? Blood pressures acceptable with systolics 130s to 140s.? Denies jermaine chest pain.? Does have significant edema in his lower extremities.? at bedside helps supplement history and review of systems.? Patient is alert and oriented x3. Hospital Course Hospital Course Hospital Course: 77-year-old male who presented with atypical chest/back pain.? Found to have NSTEMI with concern for being at least 24 to 48 hours post WA based on history and EKG findings.? Significant Q waves noted in EKG.? Echo obtained showing preliminary EF 15 to 20%. Currently BUN is elevated no need for HD, will monitor.? Problems addressed as follows: NSTEMI ACS Acute systolic CHF A-fib with RVR -Patient presented with atypical chest pain. Found to have an NSTEMI with symptoms going on for approximately [address] depressions. Significant elevation in troponin of 22, increased to 29. Cardiology was can halted. Given timing of onset of symptoms, current EKG findings, patient is outside the window for which is recommended to do immediate heart cath. Patient initially medically managed. Ends up going into A-fib with RVR on 08/13. Was initiated on amiodarone. After completing drip was transitioned to oral therapy 200 mg twice daily. Cardizem and beta-blockers were avoided at time of admission due to risk for worsening heart failure. Diuresed patient initially with good response. Started on aspirin and Brilinta. After starting irbesartan, unfortunately patient developed worsening RAQUEL. On presentation his creatinine was approximately 3. Unknown baseline. Suspect a component of ATN given heart failure. Creatinine gradually peaked at 5.4. Patient then began to auto diurese and improve with decreased to 4.4 on day of discharge. His troponin also decreased during hospitalization and was approximately 7 on day of discharge. Echocardiogram obtained during admission showing an EF of 20% with grade 1 diastolic dysfunction. Fasting lipid panel with LDL of 99. Patient was transition to carvedilol 3.125 twice daily, hydralazine 25 mg 3 times a day, isosorbide 30 mg daily for blood pressure management. Anticoagulation was transitioned to Xarelto, renally dosed at 15 mg daily. Patient has remained hemodynamically stable and is showing gradual improvement. He does need a heart cath in the near future. He is stable for discharge home however with close follow-up with lab work and planning for further management as an outpatient. Fitted with LifeVest prior to discharge SIRS, improving -Meeting SIRS criteria because of his vitals and white cell count, no sign of infection. Cultures were obtained. No antibiotics were initiated. White cell count improved by day of discharge. Thrush -Oral thrush.? Initiate Diflucan, renally dosed. complete 7 days RAQUEL with ATN -Creatinine 3 on admission, peaked at 5.4, improved to 4.4 by day of discharge.? Optimistic with ATN is improving starting to open up. We will need to repeat labs at follow-up. Unclear of patie
--- NOTE | 2022-08-20 12:52 | HMH.PHAINT1 ---
Pharmacy Intervention Comments: Counseled patient and family on 9 new medications to START and 1 medication to STOP. Patient and family expressed understanding of medications' dose, route, frequency, indication, and potential side effects. Patient and family had no further questions after medication counseling.
--- NOTE | 2022-08-21 13:19 | CARE MANAGER ---
Contacted patient's daughter Luli at patient's phone number. They were able to get all meds except Xarelto and they got samples at Dr. Jacob's office. They are aware of follow up appointments and deny any questions or concerns. BENJAMÍN Webber
== END 2022-08-20 13:00 | disposition home or self-care (01) | DRG 280 ==
LOC: ER 15:42 → 2ND 17:36
PROVIDERS: Internal Medicine; Physician Assistant; Student in an Organized Health Care Education/Training Program; Admitting Provider Internal Medicine Adolescent Medicine; Emergency Provider Emergency Medicine; PCP Internal Medicine; Visit Provider Internal Medicine Adolescent Medicine
DX: I21.4 Non-ST elevation (NSTEMI) myocardial infarction (principal); I50.21 Acute systolic (congestive) heart failure; N17.0 Acute kidney failure with tubular necrosis; B37.0 Candidal stomatitis; I24.9 Acute ischemic heart disease, unspecified; I48.91 Unspecified atrial fibrillation
CPT/HCPCS: 36415; 71045; 76770; 80048; 80053; 80061; 81001; 83735; 83880; 84100; 84484; 85007; 85025; 85378; 85730; 87040; 93005; 93306; 93976; 97162; 97165; 99291; C9803; J0282; J7060; U0003; U0005

== ENCOUNTER → 2022-08-23 10:16 | Outpatient (CLI) | payer MEDICARE, BC, SELFPAY ==
[2022-08-23 10:59] LABS: Basophils % 0.2 % (0.1-2.0); Eosinophils # 0.3 K/mm3 (0.0-0.4); Eosinophils % 2.7 % (0.1-12.0); Hematocrit 38.1 % (42.0-52.0); Hemoglobin 11.8 g/dL (14.1-18.0); Lymphocytes # 1.9 K/mm3 (0.7-4.5); Lymphocytes % 15.3 % (10-50); Mean Corpuscular Hemoglobin 29.1 pg (27.0-31.2); Mean Corpuscular Volume 93.8 fl (80-94); Mean Platelet Volume 9.2 fl (7.4-10.4); Monocytes # 0.8 K/mm3 (0.1-1.0); Monocytes % 6.6 % (1.7-9.3); Neutrophils # 9.2 K/mm3 (1.8-7.8); Neutrophils % 75.3 % (37.0-80.0); Platelet Count 364 K/mm3 (142-424); Red Blood Count 4.06 M/mm3 (4.60-6.20); White Blood Count 12.3 K/mm3 (4.8-10.8)
[2022-08-23 11:05] LABS: Chloride 111 mmol/L (98-107); Potassium 5.2 mmoL/L (3.5-5.1); Sodium 140 mmol/L (136-145)
[2022-08-23 11:07] LABS: Alanine Aminotransferase 30 U/L (12-78); Anion Gap 12.2 mEq/L (5-15); Aspartate Amino Transferase 23 U/L (17-59); Bilirubin,Unconjugated 0.7 mg/dL (0.0-1.1); Carbon Dioxide 22 mmol/L (22.0-30.0); Estimated Glomerular Filt Rate 16 ml/min (>60); GFR (African American) 19 ML/MIN (>60)
[2022-08-23 11:08] LABS: Albumin Level 3.4 g/dl (3.5-5.0); Alkaline Phosphatase 81 U/L (38-126); Bilirubin,Indirect 0.7 mg/dL (0.0-0.9); Bilirubin,Total 0.7 mg/dl (0.2-1.3); Calcium 8.4 mg/dl (8.4-10.2); Cholesterol 105 mg/dl (140-200); Glucose 158 mg/dl (74-100); HDL Cholesterol 25 mg/dl (40-60); Magnesium 2.2 mg/dl (1.6-2.3); Total Protein,Serum 6.2 g/dl (6.3-8.2); Triglycerides 124 mg/dl (30-150); VLDL Cholesterol 25 mg/dL (0-40)
[2022-08-23 11:12] LABS: Blood Urea Nitrogen 83 mg/dl (9-20); Chol/HDL Ratio 4.2 (1-3.5)
[2022-08-23 11:41] LABS: Thyroid Stimulating Hormone 2.57 uIU/mL (0.465-4.68)
[2022-08-23 11:42] LABS: Free T4 (Free Thyroxine) 1.33 ng/dl (0.78-2.19)
== END ==
PROVIDERS: PCP Internal Medicine; Referring Provider Internal Medicine; Visit Provider Internal Medicine Adolescent Medicine
DX: I21.4 Non-ST elevation (NSTEMI) myocardial infarction (principal); I25.10 Atherosclerotic heart disease of native coronary artery without angina pectoris; I50.21 Acute systolic (congestive) heart failure
CPT/HCPCS: 36415; 80048; 80061; 80076; 83735; 84439; 84443; 85025